=== PATIENT | female | born 1965 | race Caucasian/White ===

== ENCOUNTER → 2018-04-14 | Outpatient (CLI) | payer BC ==
--- NOTE | 2018-04-14 14:35 | MM ---
Reason for exam: clinical finding. Last mammogram was performed 3 years and 2 months ago. History: Patient is postmenopausal and history of other cancer. Family history of breast cancer in paternal grandmother. Took estrogen for 10 years beginning at age 31. Physical Findings: Nurse did not find any significant physical abnormalities on exam. MG 3D Diag Mammo W/Cad FERNANDO Bilateral CC and MLO view(s) were taken. Prior study comparison: January 31, 2015, bilateral MG screening mammo w CAD. December 09, 2011, bilateral digital screening mammo w/CAD. The breast tissue is heterogeneously dense. This may lower the sensitivity of mammography. Finding: There are typically benign round, diffuse/scattered and grouped calcifications in both breasts. There is no discrete abnormality. Benign bilateral axillary lymph nodes redemonstrated. These results were verbally communicated with the patient and result sheet given to the patient on 04/14/18. ASSESSMENT: Benign, BI-RAD 2 RECOMMENDATION: Routine screening mammogram of both breasts in 1 year.
--- NOTE | 2018-04-14 14:36 | USB ---
Reason for exam: clinical finding. History: Patient is postmenopausal and history of other cancer. Family history of breast cancer in paternal grandmother. Took estrogen for 10 years beginning at age 31. US Breast BILAT Right complete breast ultrasound includes all four quadrants, the retroareolar region and axilla. Finding demonstrates no cystic or solid lesion seen. Left complete breast ultrasound includes all four quadrants, the retroareolar region and axilla. Finding demonstrates no cystic or solid lesion seen. These results were verbally communicated with the patient and result sheet given to the patient on 04/14/18. ASSESSMENT: Negative, BI-RAD 1 RECOMMENDATION: Routine screening mammogram of both breasts in 1 year. Manage patient on a clinical basis.
== END | disposition home or self-care (01) ==
LOC: RADMAMWWP 12:46
PROVIDERS: ATTEND Family Medicine
DX: N63.0 Unspecified lump in unspecified breast (principal)
CPT/HCPCS: 77062; 77066

== ENCOUNTER 2018-09-01 11:05 | Emergency (ER) | payer BC ==
[2018-09-01] MEDS ORDERED: ONDANSETRON 4 MG/2 ML VIAL IVP STA (11:45)
--- NOTE | 2018-09-01 12:07 | ED ---
General Adult HPI - General Chief complaint: Nausea/Vomiting/Diarrhea Stated complaint: NVD, POSS CARDIAC ISSUE Time Seen by Provider: 09/01/18 11:30 Source: patient Mode of arrival: wheelchair Limitations: no limitations - History of Present Illness Initial comments: Patient is 57-year-old old female presented to the emergency department with nausea, vomiting and diarrhea. Patient states on Thursday she went to dinner for her birthday and had a steak. A few hours later she developed severe nausea and diarrhea. Patient states cause difficulty sleeping. Patient reports tried to eat some pasta last night but wasn't able to keep it down and vomited. Patient reports she can keep fluids down for most part. Patient reports abdominal discomfort. Patient denies any fever, headaches, blurred vision, lightheadedness, chest pain, chest tightness. Patient denies any hematuria or hematochezia. Patient denies dysuria or abdominal bloating. Patient didn't take anything for the nausea or diarrhea. - Related Data Home Medications Medication Instructions Recorded Confirmed ALPRAZolam [Xanax] 0.25 mg PO TID PRN 09/29/14 09/01/18 Albuterol Sulfate [Ventolin HFA] 2 puff INHALATION RT-Q4H PRN 09/29/14 09/01/18 Budesonide-Formot 160-4.5 Mcg 2 puff INHALATION RT-BID PRN 09/29/14 09/01/18 [Symbicort 160-4.5 Mcg Inhaler] Montelukast [Singulair] 10 mg PO HS PRN 09/29/14 09/01/18 Desvenlafaxine Succinate [Pristiq 100 mg PO HS 01/22/15 09/01/18 ER] Dulaglutide [Trulicity] 1.5 mg SQ MO 09/01/18 09/01/18 Esomeprazole Magnesium [NexIUM] 40 mg PO DAILY 09/01/18 09/01/18 Insulin Glargine,Hum.rec.anlog 70 unit SQ DAILY 09/01/18 09/01/18 [Basaglar Kwikpen U-100] Lisinopril [Prinivil] 10 mg PO DAILY 09/01/18 09/01/18 Previous Rx's Medication Instructions Recorded Ondansetron Odt [Zofran Odt] 4 mg PO Q8HR PRN #21 tab 09/01/18 Allergies Allergy/AdvReac Type Severity Reaction Status Date / Time No Known Allergies Allergy Verified 09/01/18 11:35 Review of Systems ROS Statement: Those systems with pertinent positive or pertinent negative responses have been documented in the HPI. ROS Other: All systems not noted in ROS Statement are negative. Past Medical History Past Medical History: Asthma, Diabetes Mellitus, GERD/Reflux, Sleep Apnea/CPAP/BIPAP Additional Past Medical History / Comment(s): uses cpap-has obstructive sleep apnea,?diverticulitis,rash below phil breast History of Any Multi-Drug Resistant Organisms: MRSA Date of last positivie culture/infection: 2004 MDRO Source:: right arm Past Surgical History: Appendectomy, Cholecystectomy, Hysterectomy, Orthopedic Surgery Additional Past Surgical History / Comment(s): right shoulder,hemorrhoid surg.,laparoscopy x 2 Past Anesthesia/Blood Transfusion Reactions: Motion Sickness Past Psychological History: Anxiety, Depression Smoking Status: Former smoker Past Alcohol Use History: None Reported Past Drug Use History: None Reported - Past Family History Mother Family Medical History: COPD, Diabetes Mellitus Additional Family Medical History / Comment(s): obesity Father Family Medical History: Diabetes Mellitus Additional Family Medical History / Comment(s): obesity,preluekemia General Exam Limitations: no limitations General appearance: alert, anxious, obese Head exam: Present: atraumatic, normocephalic, normal inspection Eye exam: Present: normal appearance, PERRL, EOMI. Absent: scleral icterus, conjunctival injection Pupils: Present: normal accommodation ENT exam: Present: normal exam, mucous membranes moist Neck exam: Present: normal inspection Respiratory exam: Present: normal lung sounds bilaterally. Absent: respiratory distress, wheezes, rales, rhonchi, stridor, chest wall tenderness, accessory muscle use Cardiovascular Exam: Present: regular rate, systolic murmur (Aortic stenosis noted) GI/Abdominal exam: Present: soft, hyperactive bowel sounds, other (Patient feels more nauseous with palpation on all 4 quadrants.). Absent: guarding, rebound, rigid Extremities exam: Present: normal inspection, full ROM Back exam: Present: normal inspection, full ROM. Absent: CVA tenderness (R), CVA tenderness (L) Neurological exam: Present: alert, oriented X3 Psychiatric exam: Present: anxious Skin exam: Present: warm Course Vital Signs 09/01/18 09/01/18 11:21 13:08 Temperature 98.9 F 98.0 F Pulse Rate 82 82 Respiratory 16 18 Rate Blood Pressure 122/72 157/80 O2 Sat by Pulse 99 97 Oximetry Medical Decision Making - Medical Decision Making Patient is 53-year-old female presenting to the emergency department with nausea vomiting diarrhea. CBC, CMP, UA and KUB were ordered. Labs positive for gl ucose but patient has not taken her diabetes medication today. KUB was unremarkable for an acute abdomen. Stool sample was also collected for culture. I think the patient has enteritis and having the fluids and the Zofran significantly improved her condition. Patient will be discharged with a pr escription of Zofran. Patient advised to drink fluids and stick to a liquid diet. Patient advised to follow primary care. Patient advised to return to emergency department if symptoms worsen. Case discussed with physician. - Lab Data Result diagrams: 09/01/18 12:05 09/01/18 12:05 Lab Results 09/01/18 09/01/18 09/01/18 Range/Units 12:05 12:05 12:05 WBC 10.1 (3.8-10.6) k/uL RBC 5.06 (3.80-5.40) m/uL Hgb 14.4 (11.4-16.0) gm/dL Hct 43.3 (34.0-46.0) % MCV 85.5 (80.0-100.0) fL MCH 28.5 (25.0-35.0) pg MCHC 33.3 (31.0-37.0) g/dL RDW 13.4 (11.5-15.5) % Plt Count 375 (150-450) k/uL Neutrophils % 77 % Lymphocytes % 18 % Monocytes % 4 % Eosinophils % 0 % Basophils % 0 % Neutrophils # 7.8 H (1.3-7.7) k/uL Lymphocytes # 1.8 (1.0-4.8) k/uL Monocytes # 0.4 (0-1.0) k/uL Eosinophils # 0.0 (0-0.7) k/uL Basophils # 0.0 (0-0.2) k/uL Sodium 141 (137-145) mmol/L Potassium 4.2 (3.5-5.1) mmol/L Chloride 106 (98-107) mmol/L Carbon Dioxide 26 (22-30) mmol/L Anion Gap 9 mmol/L BUN 11 (7-17) mg/dL Creatinine 0.57 (0.52-1.04) mg/dL Est GFR (CKD-EPI)AfAm >90 (>60 ml/min/1.73 sqM) Est GFR (CKD-EPI)NonAf >90 (>60 ml/min/1.73 sqM) Glucose 195 H (74-99) mg/dL Calcium 9.8 (8.4-10.2) mg/dL Total Bilirubin 0.4 (0.2-1.3) mg/dL AST 22 (14-36) U/L ALT 45 (9-52) U/L Alkaline Phosphatase 87 (38-126) U/L Total Protein 7.1 (6.3-8.2) g/dL Albumin 4.6 (3.5-5.0) g/dL Urine Color Yellow Urine Appearance Clear (Clear) Urine pH 7.0 (5.0-8.0) Ur Specific [place] 1.024 (1.001-1.035) Urine Protein Trace H (Negative) Urine Glucose (UA) Trace H (Negative) Urine Ketones 1+ H (Negative) Urine Blood Negative (Negative) Urine Nitrite Negative (Negative) Urine Bilirubin Negative (Negative) Urine Urobilinogen <2.0 (<2.0) mg/dL Ur Leukocyte Esterase Small H (Negative) Urine RBC 2 (0-5) /hpf Urine WBC 5 (0-5) /hpf Ur Squamous Epith Cells 5 H (0-4) /hpf Urine Bacteria Rare H (None) /hpf Urine Mucus Rare H (None) /hpf Disposition Clinical Impression: Gastroenteritis, Dehydration Disposition: HOME SELF-CARE Condition: Stable Instructions (If sedation given, give patient instructions): Acute Nausea and Vomiting (ED) Additional Instructions: Please take Zofran every 8 hours or as needed. Please drink a lot of fluids and a liquid diet. Please follow up primary care. Please return to emergency department if symptoms worsen. Prescriptions: Ondansetron Odt [Zofran Odt] 4 mg PO Q8HR PRN #21 tab PRN Reason: Nausea Is patient prescribed a controlled substance at d/c from ED?: No Referrals: Altagracia Craig MD [Primary Care Provider] - 1-2 days Time of Disposition: 14:24
[2018-09-01 12:29] LABS: Basophils % (A) 0 %; Eosinophils % (A) 0 %; HCT 43.3 % (34.0-46.0); HGB 14.4 gm/dL (11.4-16.0); Lymphocytes # (A) 1.8 k/uL (1.0-4.8); Lymphocytes % (A) 18 %; MCH 28.5 pg (25.0-35.0); MCHC 33.3 g/dL (31.0-37.0); MCV 85.5 fL (80.0-100.0); Mean Platelet Volume 6.6; Monocytes # (A) 0.4 k/uL (0-1.0); Monocytes % (A) 4 %; Neutrophils # (A) 7.8 k/uL (1.3-7.7); Neutrophils % (A) 77 %; Platelet Count 375 k/uL (150-450); RBC 5.06 m/uL (3.80-5.40); RDW 13.4 % (11.5-15.5); WBC 10.1 k/uL (3.8-10.6)
[2018-09-01 12:33] LABS: Appearance,Urine Clear (Clear); Bacteria,Urine Rare /hpf; Bilirubin,Urine Negative (Negative); Blood,Urine Negative (Negative); Color,Urine Yellow; Glucose,Urine (UA) Trace (Negative); Ketones,Urine 1+ (Negative); Leukocyte Esterase,Urine Small (Negative); Mucus,Urine Rare /hpf; Nitrite,Urine Negative (Negative); Protein,Urine Trace (Negative); RBC,Urine 2 /hpf (0-5); Specific Gravity,Urine 1.024 (1.001-1.035); Squamous Epithelial Cell,Urine 5 /hpf (0-4); Urobilinogen,Urine <2.0 mg/dL (<2.0); WBC,Urine 5 /hpf (0-5)
--- NOTE | 2018-09-01 12:38 | XR ---
EXAMINATION TYPE: XR KUB DATE OF EXAM: 09/01/2018 CLINICAL DATA: 53-year-old female with pain, H COMPARISON: 09/29/2014 FINDINGS: There is some patchy opacity adjacent to the left heart margin at the left base. Cholecystectomy clips. No evidence for free intraperitoneal air. Scattered small air-fluid levels within the right side of the colon and also within the rectum. No dilated small bowel loops. Phleboliths within the pelvis. IMPRESSION: 1. Some patchy opacity at the left base could represent atelectasis or early infiltrate. Correlate fo r any respiratory signs/symptoms. 2. Scattered colonic air-fluid levels in the right side of the abdomen and in the pelvis. Findings craven ggesting liquid stool that could relate to an enteritis or ileus. 3. No evidence of bowel obstruction or free intraperitoneal air.
[2018-09-01 12:51] LABS: ALT 45 U/L (9-52); AST 22 U/L (14-36); Albumin 4.6 g/dL (3.5-5.0); Alkaline Phosphatase 87 U/L (38-126); Anion Gap 9 mmol/L; Blood Urea Nitrogen 11 mg/dL (7-17); Calcium 9.8 mg/dL (8.4-10.2); Carbon Dioxide 26 mmol/L (22-30); Chloride 106 mmol/L (98-107); Glucose 195 mg/dL (74-99); Potassium 4.2 mmol/L (3.5-5.1); Sodium 141 mmol/L (137-145); Total Bilirubin 0.4 mg/dL (0.2-1.3); Total Protein 7.1 g/dL (6.3-8.2)
[2018-09-01 13:09] VITALS: RESP 18
[2018-09-01] MEDS ORDERED: SODIUM CHLORIDE 0.9% 1,000 ML IV STA (13:39)
[2018-09-01 14:46] VITALS: BP 117/72; PULSE 68; TEMP 98.1
== END 2018-09-01 14:44 | disposition home or self-care (01) ==
LOC: EC 11:05
DX: K52.9 Noninfective gastroenteritis and colitis, unspecified (principal); E86.0 Dehydration; J45.909 Unspecified asthma, uncomplicated; E11.9 Type 2 diabetes mellitus without complications; K21.9 Gastro-esophageal reflux disease without esophagitis; F41.9 Anxiety disorder, unspecified; F32.9 Major depressive disorder, single episode, unspecified; G47.33 Obstructive sleep apnea (adult) (pediatric); Z99.89 Dependence on other enabling machines and devices; Z86.14 Personal history of Methicillin resistant Staphylococcus aureus infection; Z90.49 Acquired absence of other specified parts of digestive tract; Z90.710 Acquired absence of both cervix and uterus; Z87.891 Personal history of nicotine dependence; Z79.4 Long term (current) use of insulin; Z79.899 Other long term (current) drug therapy
CPT/HCPCS: 36415; 80053; 85025; 81001; 87045; 87046; 74018; 99284; 96374; 96361; J2405

== ENCOUNTER → 2018-09-03 | Outpatient (CLI) | payer BC ==
--- NOTE | 2018-09-03 12:46 | US ---
EXAMINATION TYPE: US carotid duplex BILAT DATE OF EXAM: 09/03/2018 COMPARISON: NONE CLINICAL HISTORY: R09.89 Bruit. EXAM MEASUREMENTS: RIGHT: Peak Systolic Velocity (PSV) cm/sec ----- Right CCA: 88.6 ----- Right ICA: 143.1 ----- Right ECA: 110.8 ICA/CCA ratio: 1.6 RIGHT: End Diastole cm/sec ----- Right CCA: 25.0 ----- Right ICA: 51.0 ----- Right ECA: 15.5 LEFT: Peak Systolic Velocity (PSV) cm/sec ----- Left CCA: 103.9 ----- Left ICA: 100.0 ----- Left ECA: 97.3 ICA/CCA ratio: 1.0 LEFT: End Diastole cm/sec ----- Left CCA: 31.2 ----- Left ICA: 35.2 ----- Left ECA: 18.0 VERTEBRALS (direction of flow): Right Vertebral: Antegrade Left Vertebral: Antegrade Rhythm: Normal Mildly elevated right ICA. IMPRESSION: No evidence for hemodynamically significant stenosis. Criteria for Assigning % of Stenosis / Diameter reduction (Estimation based on the indirect measurements of the internal carotid artery velocities (ICA PSV). 1. Normal (no stenosis)=ICA PSV < 125 cm/s: ratio < 2.0: ICA EDV<40 cm/s. 2. Less than 50% stenosis=ICA PSV < 125 cm/s: ratio < 2.0: ICA EDV<40 cm/s. 3. 50 to 69% stenosis=ICA PSV of 125 to 230 cm/s: ration 2.0 ? 4.0: ICA EDV 40-100 cm/s. 4. Greater than 70% stenosis to near occlusion= ICA PSV > 230 cm/s: ratio > 4.0: ICA EDV > 100 cm/s. 5. Near occlusion= ICA PSV velocities may be low or undetectable: variable ratio and ICA EDV. 6. Total occlusion=unable to detect flow.
--- NOTE | 2018-09-03 12:59 | ECHOF ---
Referral Reason:R01.1 heart murmur MEASUREMENTS -------- HEIGHT: 160.0 cm WEIGHT: 96.6 kg BP: RVIDd: 2.4 cm (< 3.3) IVSd: 1.3 cm (0.6 - 1.1) LVIDd: 3.9 cm (3.9 - 5.3) LVPWd: 1.3 cm (0.6 - 1.1) IVSs: 1.8 cm LVIDs: 2.3 cm LVPWs: 2.0 cm LAESV Index (A-L): 16.66 ml/m Ao Diam: 2.5 cm (2.0 - 3.7) AV Cusp: 1.4 cm (1.5 - 2.6) LA Diam: 2.6 cm (2.7 - 3.8) MV EXCURSION: 15.618 mm (> 18.000) MV EF SLOPE: 68 mm/s (70 - 150) EPSS: 0.5 cm MV E Te: 1.19 m/s MV DecT: 234 ms MV A Te: 0.81 m/s MV E/A Ratio: 1.47 AV maxP.70 mmHg AV meanP.94 mmHg RAP: 15.00 mmHg RVSP: 20.02 mmHg FINDINGS -------- Sinus rhythm. This was a technically good study. The left ventricular size is normal. There is moderate concentric left ventricular hypertrophy. O verall left ventricular systolic function is normal with, an EF between 55 - 60 %. The right ventricle is normal in size. Normal LA size by volume 22+/-6 ml/m2. The right atrial size is normal. Interatrial and interventricular septum intact. The aortic valve was not well visualized. There is mild aortic stenosis present. Peak/mean gradie nt across the Aortic Valve is 16.70mmHg / 9.94mmHg. The mitral valve leaflets are mildly thickened. Moderate mitral regurgitation is present. Mild tricuspid regurgitation present. There is no evidence of pulmonary hypertension. The right v entricular systolic pressure, as measured by Doppler, is 20.02mmHg. Pulmonic valve appears structurally normal. The aortic root size is normal. The inferior vena cava is mildly dilated. There is no pericardial effusion. CONCLUSIONS -------- 1. Sinus rhythm. 2. This was a technically good study. 3. The left ventricular size is normal. 4. There is moderate concentric left ventricular hypertrophy. 5. Overall left ventricular systolic function is normal with, an EF between 55 - 60 %. 6. The right ventricle is normal in size. 7. Normal LA size by volume 22+/-6 ml/m2. 8. The right atrial size is normal. 9. Interatrial and interventricular septum intact. 10. The aortic valve was not well visualized. 11. There is mild aortic stenosis present. 12. Peak/mean gradient across the Aortic Valve is 16.70mmHg / 9.94mmHg. 13. The mitral valve leaflets are mildly thickened. 14. Moderate mitral regurgitation is present. 15. Mild tricuspid regurgitation present. 16. There is no evidence of pulmonary hypertension. 17. The right ventricular systolic pressure, as measured by Doppler, is 20.02mmHg. 18. Pulmonic valve appears structurally normal. 19. The aortic root size is normal. 20. The inferior vena cava is mildly dilated. 21. There is no pericardial effusion. HIDE SHAKER: Lynn Blackman RDCS
== END | disposition home or self-care (01) ==
LOC: RADECHMAIN 11:06
PROVIDERS: ATTEND Family Medicine
DX: I08.1 Rheumatic disorders of both mitral and tricuspid valves (principal); I86.8 Varicose veins of other specified sites; R09.89 Other specified symptoms and signs involving the circulatory and respiratory systems
CPT/HCPCS: 93306; 93880

== ENCOUNTER 2018-09-09 14:34 | Observation (INO) | payer BC ==
[2018-09-09 15:25] LABS: Basophils % (A) 0 %; Eosinophils % (A) 0 %; HCT 46.2 % (34.0-46.0); Lymphocytes # (A) 3.6 k/uL (1.0-4.8); Lymphocytes % (A) 36 %; MCHC 32.5 g/dL (31.0-37.0); MCV 83.1 fL (80.0-100.0); Mean Platelet Volume 6.4; Monocytes # (A) 0.6 k/uL (0-1.0); Monocytes % (A) 6 %; Neutrophils # (A) 5.7 k/uL (1.3-7.7); Neutrophils % (A) 57 %; Platelet Count 372 k/uL (150-450); RBC 5.55 m/uL (3.80-5.40); RDW 13.3 % (11.5-15.5); WBC 10.1 k/uL (3.8-10.6)
--- NOTE | 2018-09-09 15:32 | XR ---
EXAMINATION TYPE: XR chest 2V DATE OF EXAM: 09/09/2018 COMPARISON: 05/27/2015 TECHNIQUE: PA and lateral views submitted. HISTORY: Difficulty breathing FINDINGS: The lungs are clear and there is no pneumothorax, pleural effusion, or focal pneumonia. The heart i s enlarged. Hypertrophic change of the vertebral column. Hyperinflation correlate for COPD. IMPRESSION: 1. No acute process.
[2018-09-09 15:39] LABS: ALT 42 U/L (9-52); AST 33 U/L (14-36); Albumin 4.8 g/dL (3.5-5.0); Alkaline Phosphatase 88 U/L (38-126); Anion Gap 10 mmol/L; Blood Urea Nitrogen 12 mg/dL (7-17); Calcium 10.2 mg/dL (8.4-10.2); Carbon Dioxide 26 mmol/L (22-30); Chloride 104 mmol/L (98-107); Glucose 91 mg/dL (74-99); Magnesium 1.8 mg/dL (1.6-2.3); Sodium 140 mmol/L (137-145); Total Bilirubin 0.5 mg/dL (0.2-1.3); Total Protein 7.6 g/dL (6.3-8.2)
[2018-09-09 15:53] LABS: D-Dimer 0.27 mg/L FEU (<0.60); Partial Thromboplastin Time 24.4 sec (22.0-30.0); Prothrombin Time 10.5 sec (9.0-12.0)
[2018-09-09] MEDS ORDERED: ASPIRIN 325 MG TAB PO STA (16:12)
[2018-09-09] MEDS ORDERED: ONDANSETRON 4 MG/2 ML VIAL IVP PRN (16:15)
[2018-09-09] MEDS ORDERED: ACETAMINOPHEN TAB 325 MG TAB PO PRN (16:15)
[2018-09-09] MEDS ORDERED: NALOXONE 0.4 MG/ML 1 ML VIAL IV PRN (16:15)
[2018-09-09] MEDS ORDERED: MORPHINE SULFATE 4 MG/ML SYRINGE IV PRN (16:15)
--- NOTE | 2018-09-09 16:21 | ED ---
Pediatric SOB HPI - General Chief Complaint: Shortness of Breath Stated Complaint: SOB/chest pressure Time Seen by Provider: 09/09/18 14:45 Source: patient, RN notes reviewed, old records reviewed Mode of arrival: ambulatory Limitations: no limitations - History of Present Illness Initial Comments: 53-year-old female history of asthma presenting for evaluation of dyspnea and chest tightness. Patient has had symptoms dyspnea with exertion for the past 3 weeks. She developed some anterior chest tightness. She states this is different from previous asthma exacerbations. She was seen by her primary care physician today and sent to the hospital for further evaluation and concern for anginal chest pain. Patient has no known history of coronary artery disease. She is a nonsmoker. History of diabetes or hypertension. - Related Data Home Medications Medication Instructions Recorded Confirmed ALPRAZolam [Xanax] 0.25 mg PO TID PRN 09/29/14 09/09/18 Albuterol Sulfate [Ventolin HFA] 2 puff INHALATION RT-Q4H PRN 09/29/14 09/09/18 Budesonide-Formot 160-4.5 Mcg 2 puff INHALATION RT-BID PRN 09/29/14 09/09/18 [Symbicort 160-4.5 Mcg Inhaler] Montelukast [Singulair] 10 mg PO HS PRN 09/29/14 09/09/18 Desvenlafaxine Succinate [Pristiq 100 mg PO HS 01/22/15 09/09/18 ER] Dulaglutide [Trulicity] 1.5 mg SQ MO 09/01/18 09/09/18 Esomeprazole Magnesium [NexIUM] 40 mg PO DAILY 09/01/18 09/09/18 Lisinopril [Prinivil] 10 mg PO DAILY 09/01/18 09/09/18 Cholecalciferol (Vitamin D3) 2,000 unit PO DAILY 09/09/18 09/09/18 [Vitamin D3] Cyanocobalamin (Vitamin B-12) 5,000 mcg PO Q7D 09/09/18 09/09/18 [Vitamin B-12] Insulin Glargine,Hum.rec.anlog 75 unit SQ DAILY 09/09/18 09/09/18 [Basaglar Kwikpen U-100] Previous Rx's Medication Instructions Recorded Ondansetron Odt [Zofran Odt] 4 mg PO Q8HR PRN #21 tab 09/01/18 Allergies Allergy/AdvReac Type Severity Reaction Status Date / Time No Known Allergies Allergy Verified 09/09/18 15:23 Review of Systems ROS Statement: Those systems with pertinent positive or pertinent negative responses have been documented in the HPI. ROS Other: All systems not noted in ROS Statement are negative. Past Medical History Past Medical History: Asthma, Diabetes Mellitus, GERD/Reflux, Sleep Apnea/CPAP/BIPAP Additional Past Medical History / Comment(s): uses cpap-has obstructive sleep apnea,?diverticulitis,rash below phil breast History of Any Multi-Drug Resistant Organisms: MRSA Date of last positivie culture/infection: 2004 MDRO Source:: right arm Past Surgical History: Appendectomy, Cholecystectomy, Hysterectomy, Orthopedic Surgery Additional Past Surgical History / Comment(s): right shoulder,hemorrhoid surg., laparoscopy x 2 Past Anesthesia/Blood Transfusion Reactions: Motion Sickness Past Psychological History: Anxiety, Depression Smoking Status: Former smoker Past Alcohol Use History: None Reported Past Drug Use History: None Reported - Past Family History Mother Family Medical History: COPD, Diabetes Mellitus Additional Family Medical History / Comment(s): obesity Father Family Medical History: Diabetes Mellitus Additional Family Medical History / Comment(s): obesity,preluekemia General Exam Limitations: no limitations General appearance: alert, in no apparent distress Head exam: Present: atraumatic, normocephalic Eye exam: Present: normal appearance, PERRL ENT exam: Present: normal exam Neck exam: Present: normal inspection. Absent: tenderness, meningismus Respiratory exam: Present: normal lung sounds bilaterally. Absent: respiratory distress, wheezes Cardiovascular Exam: Present: regular rate, normal rhythm GI/Abdominal exam: Present: soft. Absent: distended, tenderness, guarding Extremities exam: Present: normal inspection, normal capillary refill. Absent: pedal edema, calf tenderness Neurological exam: Present: alert, oriented X3, CN II-XII intact. Absent: motor sensory deficit Psychiatric exam: Present: normal affect, normal mood Skin exam: Present: warm, dry, intact. Absent: cyanosis, diaphoretic Course Vital Signs 09/09/18 09/09/18 14:38 14:40 Temperature 98.6 F Pulse Rate 88 Pulse Rate [ 88 Cloth Bleaching Range Tender ] Respiratory 18 20 Rate Blood Pressure 137/83 O2 Sat by Pulse 99 Oximetry - Reevaluation(s) Reevaluation #1: 09/09/18 16:17 EKG: Normal sinus rhythm rate of 77, IN interval 168, QRS duration 88, QTC 407, no ST segment elevation. Medical Decision Making - Medical Decision Making 53-year-old female presented for evaluation of dyspnea and chest tightness. EKG is normal sinus rhythm, no definitive signs of acute ischemia, no ST segment elevation. Patient was sent to the hospital with plan for admission with cardiology on consult. Chest x-ray was obtained, shows no acute cardiothoracic pathology. Normal CBC, normal CMP, negative d-dimer, negative troponin, ne gative BNP. - Lab Data Result diagrams: 09/09/18 15:03 09/09/18 15:03 Lab Results 09/09/18 09/09/18 09/09/18 Range/Units 15:03 15:03 15:03 WBC 10.1 (3.8-10.6) k/uL RBC 5.55 H (3.80-5.40) m/uL Hgb 15.0 (11.4-16.0) gm/dL Hct 46.2 H (34.0-46.0) % MCV 83.1 (80.0-100.0) fL MCH 27.0 (25.0-35.0) pg MCHC 32.5 (31.0-37.0) g/dL RDW 13.3 (11.5-15.5) % Plt Count 372 (150-450) k/uL Neutrophils % 57 % Lymphocytes % 36 % Monocytes % 6 % Eosinophils % 0 % Basophils % 0 % Neutrophils # 5.7 (1.3-7.7) k/uL Lymphocytes # 3.6 (1.0-4.8) k/uL Monocytes # 0.6 (0-1.0) k/uL Eosinophils # 0.0 (0-0.7) k/uL Basophils # 0.0 (0-0.2) k/uL PT (9.0-12.0) sec INR (<1.2) APTT (22.0-30.0) sec D-Dimer (<0.60) mg/L FEU Sodium 140 (137-145) mmol/L Potassium 4.0 (3.5-5.1) mmol/L Chloride 104 (98-107) mmol/L Carbon Dioxide 26 (22-30) mmol/L Anion Gap 10 mmol/L BUN 12 (7-17) mg/dL Creatinine 0.63 (0.52-1.04) mg/dL Est GFR (CKD-EPI)AfAm >90 (>60 ml/min/1.73 sqM) Est GFR (CKD-EPI)NonAf >90 (>60 ml/min/1.73 sqM) Glucose 91 (74-99) mg/dL Calcium 10.2 (8.4-10.2) mg/dL Magnesium 1.8 (1.6-2.3) mg/dL Total Bilirubin 0.5 (0.2-1.3) mg/dL AST 33 (14-36) U/L ALT 42 (9-52) U/L Alkaline Phosphatase 88 (38-126) U/L Troponin I (0.000-0.034) ng/mL NT-Pro-B Natriuret Pep 28 pg/mL Total Protein 7.6 (6.3-8.2) g/dL Albumin 4.8 (3.5-5.0) g/dL 09/09/18 09/09/18 Range/Units 15:03 15:03 WBC (3.8-10.6) k/uL RBC (3.80-5.40) m/uL Hgb (11.4-16.0) gm/dL Hct (34.0-46.0) % MCV (80.0-100.0) fL MCH (25.0-35.0) pg MCHC (31.0-37.0) g/dL RDW (11.5-15.5) % Plt Count (150-450) k/uL Neutrophils % % Lymphocytes % % Monocytes % % Eosinophils % % Basophils % % Neutrophils # (1.3-7.7) k/uL Lymphocytes # (1.0-4.8) k/uL Monocytes # (0-1.0) k/uL Eosinophils # (0-0.7) k/uL Basophils # (0-0.2) k/uL PT 10.5 (9.0-12.0) sec INR 1.0 (<1.2) APTT 24.4 (22.0-30.0) sec D-Dimer 0.27 (<0.60) mg/L FEU Sodium (137-145) mmol/L Potassium (3.5-5.1) mmol/L Chloride (98-107) mmol/L Carbon Dioxide (22-30) mmol/L Anion Gap mmol/L BUN (7-17) mg/dL Creatinine (0.52-1.04) mg/dL Est GFR (CKD-EPI)AfAm (>60 ml/min/1.73 sqM) Est GFR (CKD-EPI)NonAf (>60 ml/min/1.73 sqM) Glucose (74-99) mg/dL Calcium (8.4-10.2) mg/dL Magnesium (1.6-2.3) mg/dL Total Bilirubin (0.2-1.3) mg/dL AST (14-36) U/L ALT (9-52) U/L Alkaline Phosphatase (38-126) U/L Troponin I <0.012 (0.000-0.034) ng/mL NT-Pro-B Natriuret Pep pg/mL Total Protein (6.3-8.2) g/dL Albumin (3.5-5.0) g/dL Disposition Clinical Impression: Chest pain, Dyspnea Disposition: ADMITTED IP TO THIS [facility] Condition: Stable Is patient prescribed a controlled substance at d/c from ED?: No Referrals: Altagracia Craig MD [Primary Care Provider] - 1-2 days Time of Disposition: 16:21 Decision to Admit Reason: Admit from EC Decision Date: 09/09/18 Decision Time: 16:21
[2018-09-09] MEDS ORDERED: ALPRAZolam 0.25 MG TAB PO PRN (16:53)
[2018-09-09] MEDS ORDERED: ONDANSETRON ODT 4 MG TAB PO PRN (16:53)
[2018-09-09] MEDS ORDERED: MONTELUKAST 10 MG TAB PO PRN (16:53)
--- NOTE | 2018-09-09 16:53 | P.HPIM ---
History of Present Illness H&P Date: 09/09/18 53 years old female with past medical history of asthma, diabetes sleep apnea patient of Dr. Craig who presented with shortness of breath and chest pain to the primary care's office. Shortness of breath is at rest and is worse with exertion. According to the patient, she has been having on-and-off chest pain substernal and left chest nonradiating and associated with sweating and dizziness for the past 1 month which has worsened in the past week. Patient has echocardiogram done on September 03 that suggested moderate concentric hypertrophy with moderate mitral regurgitation. Patient was sent by the primary care to the hospital to get evaluated for the chest pain. EKG done in the ER SST-T wave changes with normal rate, QRS 88 QTC 47. Lab evaluated in the ER suggest a WBC of 10.1 hemoglobin 15 hematocrit 46.2 with a B UN 12 creatinine 0.60 cardiology consult placed patient is admitted for evaluation of chest pain. Review of Systems Constitutional: Denies chills, Denies fever, endorses lethargy,, Denies poor appetite, , Denies weight loss Eyes: denies decreased vision, denies diplopia, denies discharge, denies pain Ears: deny: decreased hearing Ears, nose, mouth and throat: Denies dental pain, Denies headache, Denies nasal discharge, Denies nose pain Cardiovascular: Endorses intermittent chest pain, Denies decreased exercise tolerance, Denies edema, Denies high blood pressure, endorses irregular heart beat, endorses palpitations, Denies paroxysmal nocturnal dyspnea, Denies rapid heart beat, endorses shortness of breath Respiratory: Denies congestion, Denies cough, Denies cough with sputum, Denies dyspnea, Denies home oxygen, Denies wheezing Gastrointestinal: Denies abdominal pain, Denies change in bowel habits, Denies coffee ground emesis, Denies early satiety, Denies excessive gas, Denies heartburn, Denies hematemesis, Denies hematochezia, Denies loss of appetite, Denies nausea, Denies vomiting Genitourinary: Denies dysuria, Denies flank pain, Denies kidney stones, Denies menorrhagia, Denies urgency, Denies urinary frequency Musculoskeletal: Denies gait dysfunction, Denies limitation of motion, Denies morning stiffness, Denies muscle cramps Integumentary: Denies rash, Denies wounds, Denies brittle nails, Denies change in hair/nails, Denies darkening of skin Neurological: Denies balance difficulties, Denies change in speech, Denies double vision, Denies gait dysfunction, Denies loss of vision, Denies motor disturbance, Denies numbness, Denies paralysis, Denies paresthesias, Denies seizures Psychiatric: Denies anxiety, Denies depression Endocrine: Denies excessive sweating, Denies excessive thirst, Denies high blood sugars, Denies palpitations Hematologic/Lymphatic: Denies easy bruising, Denies lymphadenopathy Past Medical History Past Medical History: Asthma, Diabetes Mellitus, GERD/Reflux, Sleep Apnea/CPAP/BIPAP Additional Past Medical History / Comment(s): uses cpap-has obstructive sleep apnea,?diverticulitis,rash below phil breast History of Any Multi-Drug Resistant Organisms: MRSA Date of last positivie culture/infection: 2004 MDRO Source:: right arm Past Surgical History: Appendectomy, Cholecystectomy, Hysterectomy, Orthopedic Surgery Additional Past Surgical History / Comment(s): right shoulder,hemorrhoid surg.,laparoscopy x 2 Past Anesthesia/Blood Transfusion Reactions: Motion Sickness Past Psychological History: Anxiety, Depression Smoking Status: Former smoker Past Alcohol Use History: None Reported Past Drug Use History: None Reported - Past Family History Mother Family Medical History: COPD, Diabetes Mellitus Additional Family Medical History / Comment(s): obesity Father Family Medical History: Diabetes Mellitus Additional Family Medical History / Comment(s): obesity,preluekemia Medications and Allergies Home Medications Medication Instructions Recorded Confirmed Type ALPRAZolam [Xanax] 0.25 mg PO TID PRN 09/29/14 09/09/18 History Albuterol Sulfate [Ventolin HFA] 2 puff INHALATION RT-Q4H PRN 09/29/14 09/09/18 History Budesonide-Formot 160-4.5 Mcg 2 puff INHALATION RT-BID PRN 09/29/14 09/09/18 History [Symbicort 160-4.5 Mcg Inhaler] Montelukast [Singulair] 10 mg PO HS PRN 09/29/14 09/09/18 History Desvenlafaxine Succinate [Pristiq 100 mg PO HS 01/22/15 09/09/18 History ER] Dulaglutide [Trulicity] 1.5 mg SQ MO 09/01/18 09/09/18 History Esomeprazole Magnesium [NexIUM] 40 mg PO DAILY 09/01/18 09/09/18 History Lisinopril [Prinivil] 10 mg PO DAILY 09/01/18 09/09/18 History Ondansetron Odt [Zofran Odt] 4 mg PO Q8HR PRN #21 tab 09/01/18 09/09/18 Rx Cholecalciferol (Vitamin D3) 2,000 unit PO DAILY 09/09/18 09/09/18 History [Vitamin D3] Cyanocobalamin (Vitamin B-12) 5,000 mcg PO Q7D 09/09/18 09/09/18 History [Vitamin B-12] Insulin Glargine,Hum.rec.anlog 75 unit SQ DAILY 09/09/18 09/09/18 History [Basaglar Kwikpen U-100] Allergies Allergy/AdvReac Type Severity Reaction Status Date / Time No Known Allergies Allergy Verified 09/09/18 15:23 Physical Exam Vitals: Vital Signs Temp Pulse Pulse Resp BP Pulse Ox 09/09/18 14:40 88 20 09/09/18 14:38 98.6 F 88 18 137/83 99 Intake and Output 09/09/18 09/09/18 09/09/18 06:59 14:59 22:59 Other: Weight 95.254 kg - Constitutional General appearance: cooperative, no acute distress, obese - EENT Eyes: anicteric sclerae, PERRLA, normal appearance ENT: hearing grossly normal - Neck Neck: no lymphadenopathy, normal ROM, no other, no rigidity, no stridor, no thyromegaly - Respiratory Respiratory: bilateral: CTA, negative: diminished, dullness, rales, rhonchi - Cardiovascular Rhythm: regular Heart sounds: normal: S1, S2 Abnormal Heart Sounds: no systolic murmur, no diastolic murmur, no rub, no S3 Gallop, no S4 Gallop, no click, no other - Gastrointestinal General gastrointestinal: normal bowel sounds, soft - Integumentary Integumentary: no rash - Neurologic Neurologic: CNII-XII intact - Musculoskeletal Musculoskeletal: gait normal, strength equal bilaterally - Psychiatric Psychiatric: A&O x's 3, appropriate affect Results CBC & Chem 7: 09/09/18 15:03 09/09/18 15:03 Labs: Abnormal Lab Results - Last 24 Hours (Table) 09/09/18 Range/Units 15:03 RBC 5.55 H (3.80-5.40) m/uL Hct 46.2 H (34.0-46.0) % Thrombosis Risk Factor Assmnt - DVT/VTE Prophylaxis DVT/VTE Prophylaxis: Pharmacologic Prophylaxis ordered Assessment and Plan Plan: #1 acute chest pain appears atypical in nature. EKG negative for ST or T-wave changes troponin 1 negative repeat troponin. Cardiology evaluation continue. Echo suggested moderate MR, mild aortic stenosis moderate concentric hypertrophy with EF 60-65%. Continue telemetryI #2 type 2 diabetes [facility] Decrease Lantus to 50 units daily. #3 hypertension continue lisinopril 10 mg by mouth daily #4 depression/anxiety continue this venlafaxine 100 mg daily at bedtime. Xanax 0.2 5NG by mouth 3 times a day as needed #5 COPD/asthma continue patient on Symbicort and albuterol as needed. Continue Singulair 10 mg by mouth at bedtime #6 GERD continue Nexium 40 mg by mouth daily #7 CODE STATUS full code #8 DVT prophylaxis with heparin every 12 Disposition likely discharge tomorrow
[2018-09-09 18:19] VITALS: RESP 18
[2018-09-09 20:06] VITALS: BMI 37.2
[2018-09-09 20:53] LABS: Glucose,Whole Blood 98 mg/dL (75-99)
[2018-09-09] MEDS: SYMBICORT 160-4.5 MCG INHALER INHALATION PRN (20:57)
[2018-09-09] MEDS ORDERED: DESVENLAFAXINE SUCCINATE 50 MG TAB.ER.24H PO SCH (21:00)
[2018-09-10 03:06] LABS: Basophils # (A) 0.1 k/uL (0-0.2); Basophils % (A) 1 %; Eosinophils # (A) 0.1 k/uL (0-0.7); Eosinophils % (A) 1 %; HCT 45.5 % (34.0-46.0); HGB 14.4 gm/dL (11.4-16.0); Lymphocytes # (A) 4.5 k/uL (1.0-4.8); Lymphocytes % (A) 42 %; MCH 26.8 pg (25.0-35.0); MCHC 31.6 g/dL (31.0-37.0); MCV 84.7 fL (80.0-100.0); Mean Platelet Volume 6.4; Monocytes # (A) 0.6 k/uL (0-1.0); Monocytes % (A) 5 %; Neutrophils # (A) 5.5 k/uL (1.3-7.7); Neutrophils % (A) 50 %; Platelet Count 325 k/uL (150-450); RBC 5.37 m/uL (3.80-5.40); RDW 13.4 % (11.5-15.5); WBC 10.9 k/uL (3.8-10.6)
[2018-09-10 03:19] LABS: ALT 33 U/L (9-52); AST 23 U/L (14-36); Albumin 4.3 g/dL (3.5-5.0); Alkaline Phosphatase 72 U/L (38-126); Anion Gap 11 mmol/L; Blood Urea Nitrogen 13 mg/dL (7-17); Calcium 9.9 mg/dL (8.4-10.2); Carbon Dioxide 23 mmol/L (22-30); Chloride 105 mmol/L (98-107); Glucose 114 mg/dL (74-99); Potassium 3.8 mmol/L (3.5-5.1); Sodium 139 mmol/L (137-145); Total Bilirubin 0.4 mg/dL (0.2-1.3); Total Protein 6.6 g/dL (6.3-8.2)
[2018-09-10 06:38] LABS: Glucose,Whole Blood 85 mg/dL (75-99)
[2018-09-10] MEDS ORDERED: PANTOPRAZOLE 40 MG TABLET PO SCH (07:30)
[2018-09-10] MEDS: SYMBICORT 160-4.5 MCG INHALER INHALATION PRN (07:35)
[2018-09-10] MEDS ORDERED: LISINOPRIL 10 MG TAB PO SCH (09:00)
[2018-09-10] MEDS ORDERED: ASPIRIN 325 MG TAB PO SCH (09:00)
[2018-09-10] MEDS ORDERED: CHOLECALCIFEROL 1,000 UNIT TAB PO SCH (09:00)
[2018-09-10] MEDS ORDERED: INSULIN DETEMIR (LEVEMIR) 100 UNIT/ML SYR SQ SCH (09:00)
--- NOTE | 2018-09-10 11:16 | P.CRDCN ---
History of Present Illness History of present illness: This is a pleasant 53-year-old female past medical history significant for diabetes mellitus, asthma, gastroesophageal reflux disease, hypertension, sleep apnea and obestiy. She denies history of coronary artery disease and dose not follow with a [facility] for any reason. We have been asked to see her in consultation for chest pain. She states she saw her PCP and was sent in for a stress test. She states for the previous 2-3 weeks she has noticed shortness of breath which is atypical for her. She has underlying asthma, however this shortness of breath felt different and was not associated with wheezing. She felt like every time she briefly exerted herself her shortness of breath was worse. Then yesterday she started having tightness in the chest associated with the shortness of breath. She had an echocardiogram done as an outpatient that revealed preserved LV systolic function with EF 55% with mild-moderate MR and mild aortic stenosis with mean gradient across the valve of 9 mmHg. She is currently chest pain free and denies resting shortness of breath. EKG reveals sinus mechanism with no acute ST or T-wave abnormalities. Chest xray is negative for an acute cardiopulmonary process. Laboratory data reviewed, WBC 10.9, hgb 14.4, plt 325, d-dimer negative, sodium 139, potassium 3.8, creatinine 0.67, cardiac enzymes negative x3, magnesium 1.8, NTproBNP 28. Current cardiac medications include lisinopril 10 mg daily. She states she was told she could stop her statin since her A1C was controlled. At the time of my exam: CONSTITUTIONAL: Denies fever. Denies chills. EYES: Denies blurred vision. Denies vision changes. Denies eye pain. EARS, NOSE, MOUTH & THROAT: Denies headache. Denies sore throat. Denies ear pain. CARDIOVASCULAR: Denies chest pain. Denies shortness of breath. Denies orthopnea. Denies PND. Denies palpitations. RESPIRATORY: Denies cough. GASTROINTESTINAL: Denies abdominal pain. Denies diarrhea. Denies constipation. Denies nausea. Denies vomiting. MUSCULOSKELETAL: Denies myalgias. INTEGUMENTARY: Denies pruitis. Denies rash. NEUROLOGIC: Denies numbness. Denies tingling. Denies weakness. PSYCHIATRIC: Denies anxiety. Denies depression. ENDOCRINE: Denies fatigue. Denies weight change. Denies polydipsia. Denies polyurina. GENITOURINARY: Denies burning, hematuria or urgency with micturation. HEMATOLOGIC: Denies history of anemia. Denies bleeding. Blood pressure 108/70 heart rate 82 afebrile maintaining oxygen saturation on ro om air GENERAL: This is a 53-year-old female in no apparent distress at the time of my examination. Obese. HEENT: Head is atraumatic, normocephalic. Pupils are equal, round. Sclerae anicteric. Conjunctivae are clear. Mucous membranes of the mouth are moist. Neck is supple. There is no jugular venous distention. No carotid bruit is heard. LUNGS: Clear to auscultation no wheezes, rales or rhonchi. No chest wall tenderness is noted on palpation or with deep breathing. HEART: Regular rate and rhythm with systolic ejection murmur at the left sternal border, no rubs or gallops. S1 and S2 heard. ABDOMEN: Soft, nontender. Bowel sounds are heard. No organomegaly noted. EXTREMITIES: No evidence of peripheral edema and no calf tenderness noted. VASCULAR: Radial and dorsalis pedis pulses palpated, no evidence of clubbing. NEUROLOGIC: Patient is awake, alert and oriented x3. ASSESSMENT Chest pain and shortness of breath, atypical for angina. An acute coronary event has been ruled out. Valvular heart disease, non-rheumatic. Aortic stenosis and mitral regurgitation Hypertension Diabetes mellitus History of asthma Obstructive sleep apnea Obesity, BMI 37 PLAN An acute coronary event has been ruled out. Decrease aspirin to 81 mg daily. Shortness of breath is unlikely related to aortic stenosis as it is mild. Check lipid profile. Lengthy discussion with the patient and her daughter regarding the need for ongoing and continuous use of a statin medication secondary to diabetes whether controlled or not. Initiate on crestor 20 mg daily. Perform stress echocardiogram to assess for stress induced ischemia. If stress test is normal she is stable for discharge home. Further evaluation of valvular disease will be completed as an outpatient with [facility]. Follow up in the office with Dr. Mccann in 2-3 weeks. Thank you kindly for this consultation. Nurse Practitioner note has been reviewed, I agree with a documented findings and plan of care. Patient was seen and examined. Past Medical History Past Medical History: Asthma, Diabetes Mellitus, GERD/Reflux, Sleep Apnea/CPAP/BIPAP Additional Past Medical History / Comment(s): uses cpap-has obstructive sleep apnea,?diverticulitis,rash below phil breast History of Any Multi-Drug Resistant Organisms: MRSA Date of last positivie culture/infection: 2004 MDRO Source:: right arm Past Surgical History: Appendectomy, Cholecystectomy, Hysterectomy, Orthopedic Surgery Additional Past Surgical History / Comment(s): right shoulder,hemorrhoid surg.,laparoscopy x 2 Past Anesthesia/Blood Transfusion Reactions: Motion Sickness Past Psychological History: Anxiety, Depression Smoking Status: Former smoker Past Alcohol Use History: None Reported Past Drug Use History: None Reported - Past Family History Mother Family Medical History: COPD, Diabetes Mellitus Additional Family Medical History / Comment(s): obesity Father Family Medical History: Diabetes Mellitus Additional Family Medical History / Comment(s): obesity,preluekemia Medications and Allergies Home Medications Medication Instructions Recorded Confirmed Type ALPRAZolam [Xanax] 0.25 mg PO TID PRN 09/29/14 09/09/18 History Albuterol Sulfate [Ventolin HFA] 2 puff INHALATION RT-Q4H PRN 09/29/14 09/09/18 History Budesonide-Formot 160-4.5 Mcg 2 puff INHALATION RT-BID PRN 09/29/14 09/09/18 History [Symbicort 160-4.5 Mcg Inhaler] Montelukast [Singulair] 10 mg PO HS PRN 09/29/14 09/09/18 History Desvenlafaxine Succinate [Pristiq 100 mg PO HS 01/22/15 09/09/18 History ER] Dulaglutide [Trulicity] 1.5 mg SQ MO 09/01/18 09/09/18 History Esomeprazole Magnesium [NexIUM] 40 mg PO DAILY 09/01/18 09/09/18 History Lisinopril [Prinivil] 10 mg PO DAILY 09/01/18 09/09/18 History Ondansetron Odt [Zofran Odt] 4 mg PO Q8HR PRN #21 tab 09/01/18 09/09/18 Rx Cholecalciferol (Vitamin D3) 2,000 unit PO DAILY 09/09/18 09/09/18 History [Vitamin D3] Cyanocobalamin (Vitamin B-12) 5,000 mcg PO Q7D 09/09/18 09/09/18 History [Vitamin B-12] Insulin Glargine,Hum.rec.anlog 75 unit SQ DAILY 09/09/18 09/09/18 History [Basaglar Lizapen U-100] Rosuvastatin Calcium [Crestor] 20 mg PO DAILY #90 tab 09/10/18 Rx Allergies Allergy/AdvReac Type Severity Reaction Status Date / Time No Known Allergies Allergy Verified 09/09/18 15:23 Physical Exam Vitals: Vital Signs Temp Pulse Pulse Pulse Resp BP BP 09/10/18 08:00 18 09/10/18 07:05 97.9 F 82 18 108/70 09/10/18 04:00 98.4 F 78 18 09/10/18 03:29 18 09/10/18 00:00 98.3 F 83 18 09/09/18 20:57 09/09/18 20:00 18 09/09/18 18:17 97.4 F L 70 18 09/09/18 18:14 98.1 F 82 16 122/78 09/09/18 16:43 88 18 118/75 09/09/18 14:40 88 20 09/09/18 14:38 98.6 F 88 18 137/83 BP Pulse Ox 09/10/18 08:00 09/10/18 07:05 97 09/10/18 04:00 118/73 97 09/10/18 03:29 09/10/18 00:00 109/71 97 09/09/18 20:57 97 09/09/18 20:00 09/09/18 18:17 147/86 100 09/09/18 18:14 99 09/09/18 16:43 98 09/09/18 14:40 09/09/18 14:38 99 Intake and Output 09/09/18 09/10/18 09/10/18 22:59 06:59 14:59 Intake Total 240 Balance 240 Intake: Oral 240 Other: Voiding Method Toilet Toilet Toilet # Voids 1 Results 09/10/18 02:49 09/10/18 02:49 Cardiac Enzymes 09/09/18 09/09/18 09/09/18 Range/Units 15:03 15:03 21:06 AST 33 (14-36) U/L Troponin I <0.012 <0.012 (0.000-0.034) ng/mL 09/10/18 09/10/18 Range/Units 02:49 02:49 AST 23 (14-36) U/L Troponin I <0.012 (0.000-0.034) ng/mL Coagulation 09/09/18 Range/Units 15:03 PT 10.5 (9.0-12.0) sec APTT 24.4 (22.0-30.0) sec CBC 09/09/18 09/10/18 Range/Units 15:03 02:49 WBC 10.1 10.9 H (3.8-10.6) k/uL RBC 5.55 H 5.37 (3.80-5.40) m/uL Hgb 15.0 14.4 (11.4-16.0) gm/dL Hct 46.2 H 45.5 (34.0-46.0) % Plt Count 372 325 (150-450) k/uL Comprehensive Metabolic Panel 09/09/18 09/10/18 Range/Units 15:03 02:49 Sodium 140 139 (137-145) mmol/L Potassium 4.0 3.8 (3.5-5.1) mmol/L Chloride 104 105 (98-107) mmol/L Carbon Dioxide 26 23 (22-30) mmol/L BUN 12 13 (7-17) mg/dL Creatinine 0.63 0.67 (0.52-1.04) mg/dL Glucose 91 114 H (74-99) mg/dL Calcium 10.2 9.9 (8.4-10.2) mg/dL AST 33 23 (14-36) U/L ALT 42 33 (9-52) U/L Alkaline Phosphatase 88 72 (38-126) U/L Total Protein 7.6 6.6 (6.3-8.2) g/dL Albumin 4.8 4.3 (3.5-5.0) g/dL Current Medications Generic Name Dose Route Start Last Admin Trade Name Freq PRN Reason Stop Dose Admin Acetaminophen 650 mg 09/09/18 16:15 Tylenol Tab PO Q6HR PRN Mild Pain or Fever > 100.5 Alprazolam 0.25 mg 09/09/18 16:53 Xanax PO TID PRN Anxiety Aspirin 325 mg 09/10/18 09:00 Aspirin PO DAILY [facility] Budesonide/Formoterol Fumarate 2 puff 09/09/18 16:53 09/10/18 07:35 Symbicort 160-4.5 Mcg Inhaler INHALATION 2 puff RT-BID PRN Administration ASTHMA/Allergy Symptoms Cholecalciferol 2,000 unit 09/10/18 09:00 Vitamin D3 (25 Mcg = 1000 Iu) PO DAILY [facility] Cyanocobalamin 5,000 mcg 09/11/18 09:00 Vitamin B-12 PO Q7D [facility] Desvenlafaxine Succinate 100 mg 09/09/18 21:00 09/09/18 20:42 Pristiq Er PO 100 mg HS [facility] Administration Insulin Detemir 50 unit 09/10/18 09:00 Levemir SQ DAILY [facility] Lisinopril 10 mg 09/10/18 09:00 Zestril PO DAILY [facility] Montelukast Sodium 10 mg 09/09/18 16:53 Singulair PO HS PRN ALLERGY/ASTHMA SYMPTOMS Morphine Sulfate 4 mg 09/09/18 16:15 Morphine Sulfate (Inj) IV Q4HR PRN Severe Pain Naloxone HCl 0.2 mg 09/09/18 16:15 Narcan IV Q2M PRN Opioid Reversal Ondansetron HCl 4 mg 09/09/18 16:15 Zofran IVP Q8HR PRN Nausea And Vomiting Ondansetron HCl 4 mg 09/09/18 16:53 Zofran Odt PO Q8HR PRN Nausea Pantoprazole Sodium 40 mg 09/10/18 07:30 Protonix PO AC-BRKFST [facility] Intake and Output 09/09/18 09/10/18 09/10/18 22:59 06:59 14:59 Intake Total 240 Balance 240 Intake: Oral 240 Other: Voiding Method Toilet Toilet Toilet # Voids 1 09/10/18 02:49 09/10/18 02:49
[2018-09-10 11:18] LABS: Glucose,Whole Blood 92 mg/dL (75-99)
[2018-09-10 11:39] VITALS: BP 105/69; TEMP 97.8
[2018-09-10 12:05] VITALS: PULSE 88
[2018-09-10 13:04] LABS: Cholesterol 134 mg/dL (<200); HDL Cholesterol 35 mg/dL (40-60); LDL Cholesterol,Calculated 71 mg/dL (0-99); Triglycerides 142 mg/dL (<150)
--- NOTE | 2018-09-10 13:05 | P.DS ---
Providers Date of admission: 09/09/18 16:15 Attending physician: Mick Palma MD Consults: 09/09/18 16:15 Consult Physician Routine Consulting Provider: Brendan Marcus Consult Reason/Comments: Chest pain, dyspnea Do you want consulting provider notified?: Yes Primary care physician: Altagracia Craig [facility] Course: 53 years old female with past medical history of asthma, diabetes sleep apnea patient of Dr. Craig who presented with shortness of breath and chest pain to the primary care's office. Shortness of breath is at rest and is worse with exertion. According to the patient, she has been having on-and-off chest pain substernal and left chest nonradiating and associated with sweating and dizziness for the past 1 month which has worsened in the past week. Patient has echocardiogram done on September 03 that suggested moderate concentric hypertrophy with moderate mitral regurgitation. Patient was sent by the primary care to the hospital to get evaluated for the chest pain. EKG done in the ER SST-T wave changes with normal rate, QRS 88 QTC 47. Lab evaluated in the ER suggest a WBC of 10.1 hemoglobin 15 hematocrit 46.2 with a B UN 12 creatinine 0.60 cardiology consult placed patient is admitted for evaluation of chest pain. 09/10 chest pain is improved shortness of breath has resolved. Patient underwent stress test today and will follow up with Dr. sierra in 2-3 weeks for a [facility] for evaluation of valve. Crestor started 20 mg by mouth daily. Patient follows with Dr. Ibrahim on discharge. Discharge diagnoses #1 acute chest pain appears atypical #2 type 2 diabetes #3 hypertension #4 depression/anxiety #5 COPD/asthma #6 GERD #7 Mitral regurgitation [facility] in 2-3 weeks A copy of discharge to Dr. Craig Patient Condition at Discharge: Stable Plan - Discharge Summary Discharge Rx Participant: No New Discharge Prescriptions: New Rosuvastatin Calcium [Crestor] 20 mg PO DAILY #90 tab No Action Albuterol Sulfate [Ventolin HFA] 2 puff INHALATION RT-Q4H PRN PRN Reason: Shortness Of Breath Budesonide-Formot 160-4.5 Mcg [Symbicort 160-4.5 Mcg Inhaler] 2 puff INHALATION RT-BID PRN PRN Reason: ASTHMA/Allergy Symptoms Montelukast [Singulair] 10 mg PO HS PRN PRN Reason: ALLERGY/ASTHMA SYMPTOMS ALPRAZolam [Xanax] 0.25 mg PO TID PRN PRN Reason: Anxiety Desvenlafaxine Succinate [Pristiq ER] 100 mg PO HS Lisinopril [Prinivil] 10 mg PO DAILY Esomeprazole Magnesium [NexIUM] 40 mg PO DAILY Dulaglutide [Trulicity] 1.5 mg SQ MO Ondansetron Odt [Zofran Odt] 4 mg PO Q8HR PRN #21 tab PRN Reason: Nausea Cholecalciferol (Vitamin D3) [Vitamin D3] 2,000 unit PO DAILY Insulin Glargine,Hum.rec.anlog [Basaglar Kwikpen U-100] 75 unit SQ DAILY Cyanocobalamin (Vitamin B-12) [Vitamin B-12] 5,000 mcg PO Q7D Discharge Medication List ALPRAZolam [Xanax] 0.25 mg PO TID PRN 09/29/14 [History] Albuterol Sulfate [Ventolin HFA] 2 puff INHALATION RT-Q4H PRN 09/29/14 [History] Budesonide-Formot 160-4.5 Mcg [Symbicort 160-4.5 Mcg Inhaler] 2 puff INHALATION RT-BID PRN 09/29/14 [History] Montelukast [Singulair] 10 mg PO HS PRN 09/29/14 [History] Desvenlafaxine Succinate [Pristiq ER] 100 mg PO HS 01/22/15 [History] Dulaglutide [Trulicity] 1.5 mg SQ MO 09/01/18 [History] Esomeprazole Magnesium [NexIUM] 40 mg PO DAILY 09/01/18 [History] Lisinopril [Prinivil] 10 mg PO DAILY 09/01/18 [History] Ondansetron Odt [Zofran Odt] 4 mg PO Q8HR PRN #21 tab 09/01/18 [Rx] Cholecalciferol (Vitamin D3) [Vitamin D3] 2,000 unit PO DAILY 09/09/18 [History] Cyanocobalamin (Vitamin B-12) [Vitamin B-12] 5,000 mcg PO Q7D 09/09/18 [History] Insulin Glargine,Hum.rec.anlog [Basaglar Kwikpen U-100] 75 unit SQ DAILY 09/09/18 [History] Rosuvastatin Calcium [Crestor] 20 mg PO DAILY #90 tab 09/10/18 [Rx] Follow up Appointment(s)/Referral(s): Altagracia Craig MD [Primary Care Provider] - 1-2 days Zohaib Mccann MD [STAFF PHYSICIAN] - 10/06/18 10:45 am
--- NOTE | 2018-09-10 14:27 | ECHOS ---
STRESS ECHOCARDIOGRAM DATE OF SERVICE: 09/10/2018 INDICATIONS: Chest pain. MEDICATIONS: BASELINE HEART RATE: 80 BASELINE BLOOD PRESSURE: 111/74 MAXIMUM HEART RATE: 151 MAXIMUM BLOOD PRESSURE: 162/76 85% MPHR: 141 100% MPHR: 166 METS: 8.5 MAXIMUM STAGE REACHED: III TOTAL EXERCISE TIME: 7 minutes CLINICAL INFORMATION: Patient was exercised for a total period of 7 minutes. Peak heart rate of 151 was achieved. Maximum blood pressure of 162/76 mmHg was noted. Resting EKG shows normal sinus rhythm with normal DE interval and QRS duration and normal ST-T waves. No ST- segment depression suggestive of ischemia is noted. The baseline echocardiographic images reveals normal left ventricular chamber size with normal left ventricular systolic function. In the immediate postexercise periods, normal increase in the wall thickness and contractility is noted. FINAL IMPRESSION: 1. This stress echocardiographic study is negative for stress-induced ischemia. 2. Patient's exercise tolerance is average. 3. The patient did not complain of any chest pain during the test. MMODL / IJN: [id number] /
[2018-09-11] MEDS ORDERED: ASPIRIN 81 MG PO SCH (09:00)
[2018-09-11] MEDS ORDERED: CYANOCOBALAMIN 500 MCG TAB PO SCH (09:00)
== END 2018-09-10 15:00 | disposition home or self-care (01) ==
LOC: EC 14:34 → 1SOBS 16:15
PROVIDERS: ADMIT Internal Medicine; ATTEND Internal Medicine
DX: R07.89 Other chest pain (principal); J44.9 Chronic obstructive pulmonary disease, unspecified; I10 Essential (primary) hypertension; E11.9 Type 2 diabetes mellitus without complications; K21.9 Gastro-esophageal reflux disease without esophagitis; I35.0 Nonrheumatic aortic (valve) stenosis; I34.0 Nonrheumatic mitral (valve) insufficiency; R61 Generalized hyperhidrosis; R42 Dizziness and giddiness; G47.33 Obstructive sleep apnea (adult) (pediatric); Z99.89 Dependence on other enabling machines and devices; F32.9 Major depressive disorder, single episode, unspecified; F41.9 Anxiety disorder, unspecified; E66.9 Obesity, unspecified; Z68.37 Body mass index [BMI] 37.0-37.9, adult; Z79.51 Long term (current) use of inhaled steroids; Z79.4 Long term (current) use of insulin; Z79.899 Other long term (current) drug therapy; Z86.14 Personal history of Methicillin resistant Staphylococcus aureus infection; Z90.49 Acquired absence of other specified parts of digestive tract; Z90.710 Acquired absence of both cervix and uterus; Z87.891 Personal history of nicotine dependence; Z83.3 Family history of diabetes mellitus; Z82.5 Family history of asthma and other chronic lower respiratory diseases; Z80.6 Family history of leukemia; Z83.49 Family history of other endocrine, nutritional and metabolic diseases
CPT/HCPCS: 99285; 36415; 94640 ×3; 93005; 93351; 85379; 83880; 80061; 80053 ×2; 83735; 84484 ×2; 85025 ×2; 85610; 85730; 71046; G0378 ×2

== ENCOUNTER → 2018-11-04 | Day surgery (SDC) | payer BC ==
[2018-11-01 15:53] VITALS: BMI 37.7
[~2018-11-04] MED LIST: BENZOCAINE SPRAY 1 CAN MUCOUS MEM ONE; MIDAZOLAM (PF) 2 MG/2 ML VIAL IV ONE; SODIUM CHLORIDE 0.9% 1,000 ML IV SCH; SODIUM CHLORIDE 0.9% 500 ML 500 ML IV ONE; fentaNYL (PF) 50 MCG/ML 2 ML AMP IV ONE; fentaNYL (PF) 50 MCG/ML 2 ML AMP ONE
[2018-11-04 11:30] VITALS: TEMP 98.3
[2018-11-04 12:14] VITALS: RESP 14
[2018-11-04 12:56] VITALS: PULSE 68
--- NOTE | 2018-11-04 13:08 | ECHOT ---
TRANSESOPHAGEAL ECHOCARDIOGRAM This transesophageal echocardiogram was performed to assess the patient's mitral regurgitation. PROCEDURE: Patient was given intravenous sedation with Versed and fentanyl and transesophageal echocardiogram was performed without any complications. FINDINGS: Left ventricular chamber is normal in size with normal left ventricular systolic function. The mitral valve morphology is normal. There is no evidence of any mitral valve prolapse. There is minimal mitral regurgitation noted. Aortic valve is mildly sclerotic without any evidence of aortic stenosis. There is no evidence of any aortic regurgitation. Tricuspid valve morphology is normal. Left atrium is normal in size. There is no evidence of thrombus in left atrium or atrial appendage. Interatrial septum is intact. There is no evidence of any PFO. FINAL IMPRESSION: 1. Normal left ventricular chamber size with normal left ventricular systolic function. 2. Minimal thickening of the mitral leaflets noted without any evidence of mitral valve prolapse. There is minimal mitral regurgitation noted. 3. Aortic valve is sclerotic without any evidence of significant aortic stenosis. There is no evidence of any aortic regurgitation. 4. There is no evidence of thrombus in left atrial appendage. Pulmonary vein flow is normal. 5. Interatrial septum is intact. 6. There is no evidence of any patent foramen ovale. RECOMMENDATIONS: Continue medical treatment. MMODL / IJN: [id number] /
[2018-11-04 13:15] VITALS: BP 123/60
--- NOTE | 2018-11-09 12:06 | CDI ---
Outpatient Documentation Clarification Form Date: 11/09/18 CDS/Meterman Name: Leola Flanagan Phone: If any questions, call Agata Nicolas Bath Steward at [phone] Patient Name: Awilda Middleton Admit Date: 11/04/18 Discharge Date: 11/04/18 ATTENTION: The [facility] Coding Staff appreciate your assistance in clarifying documentation. Please respond to the clarification below the line at the bottom and electronically sign. The [facility] Coding staff will review the response and follow-up if needed. Please note: Queries are made part of the Legal Health Record. If you have any questions, please contact the Bath Steward. Dear Dr. Mccann, Please provide clarification as to the procedure that was performed. The operative report states that a Transesophageal Echocardiogram was performed. The hospital department charged all three parts of this exam. However, I do not see any documentation for the pulse wave w/spectral or the color flow velocity mapping. Please clarify if these parts of this test were performed. Please dictate addendum if procedure was performed. Your [facility] report is still in draft form in [facility]. So easy for you to add needed information before you sign it. See addendum prog note by Andrea MCKINNEY
--- NOTE | 2018-12-16 15:25 | P.PN ---
Progress Note - Text Progress Note Date: 12/16/18 This is an addendum to the [facility] report dictated, color flow Doppler study shows minimal mitral regurgitation. Please add this to the [facility] report. DNP note has been reviewed, I agree with a documented findings and plan of care. Patient was seen and examined.
--- NOTE | 2018-12-30 12:56 | CDI ---
Outpatient Documentation Clarification Form Date: 12/30/18 CDS/Reheater Name: Leola Flanagan Phone: If any questions, call Agata Nicolas Upsetting Machine Operator at [phone] Patient Name: Awilda Middleton Admit Date: 11/04/28 Discharge Date: 11/04/28 ATTENTION: The [facility] Coding Staff appreciate your assistance in clarifying documentation. Please respond to the clarification below the line at the bottom and electronically sign. The [facility] Coding staff will review the response and follow-up if needed. Please note: Queries are made part of the Legal Health Record. If you have any questions, please contact the Upsetting Machine Operator. Dear Dr. Mccann, Thank you for your quick response to my query regarding your [facility] documentation. I do see in the progress note that you have documented that the Color Flow Doppler Study was performed. However, I still so not see documentation for the Pulse Wave with spectral display. Please document with an addendum to your [facility] report or document on this for below the line if this part of the test was performed. Thank you for your kind consideration. MTDD
== END ==
LOC: CATHCVL 10:51
PROVIDERS: ATTEND Internal Medicine Cardiovascular Disease
DX: I08.0 Rheumatic disorders of both mitral and aortic valves (principal)
CPT/HCPCS: 93312; 93325; J3010; J2250; 93320

== ENCOUNTER 2020-06-20 18:35 | Emergency (ER) | payer BC ==
[2020-06-20] MEDS ORDERED: KETOROLAC 15 MG/ML 1 ML VIAL IM STA (19:01)
--- NOTE | 2020-06-20 19:28 | XR ---
Result: Clinical History: Pain. Comparison: None available. Technique: 3 views of the left hand. Findings: No acute fracture or dislocation is seen. The visualized osseous structures are in anatomic alignmen t. There are scattered mild degenerative changes. Ring finger ring is in place. Otherwise no definit e radiopaque foreign body seen. Impression: No acute osseous abnormality. Mild osteoarthritis.
--- NOTE | 2020-06-20 19:36 | ED ---
Extremity Problem HPI - General Chief complaint: Extremity Problem,Nontraumatic Stated complaint: Left Arm injury Time Seen by Provider: 06/20/20 18:47 Source: patient, RN notes reviewed Mode of arrival: ambulatory Limitations: no limitations - History of Present Illness Initial comments: 54-year-old white female patient presents to the emergency room with her after waking from a nap around 4:00pm today with left hand and forearm pain. Patient states she seen Dr. Lew yesterday and had a joint injection for arthritis to the base of her left thumb and went home with no complications. Pt bought a T splint and wore it today but took it off when she woke with pain. States upon awakening with pain took Tylenol and Flexeril with no relief. Started having anxiety so she took a Xanax and had bring her to ER. Patient tearful in room. MD Complaint: extremity pain, joint pain -: hour(s) (started when she woke from nap around 1600 today) Location: left - Related Data Home Medications Medication Instructions Recorded Confirmed ALPRAZolam [Xanax] 0.25 mg PO TID PRN 09/29/14 11/04/18 Albuterol Sulfate [Ventolin HFA] 2 puff INHALATION RT-Q4H PRN 09/29/14 11/01/18 Budesonide-Formot 160-4.5 Mcg 2 puff INHALATION RT-BID PRN 09/29/14 11/01/18 [Symbicort 160-4.5 Mcg Inhaler] Montelukast [Singulair] 10 mg PO HS PRN 09/29/14 11/01/18 Desvenlafaxine Succinate [Pristiq] 100 mg PO HS 01/22/15 11/04/18 Dulaglutide [Trulicity] 1.5 mg SQ MO 09/01/18 11/04/18 Esomeprazole Magnesium [NexIUM] 40 mg PO DAILY 09/01/18 11/04/18 Lisinopril [Prinivil] 10 mg PO DAILY 09/01/18 11/04/18 Cholecalciferol (Vitamin D3) 2,000 unit PO DAILY 09/09/18 11/04/18 [Vitamin D3] Cyanocobalamin (Vitamin B-12) 5,000 mcg PO Q7D 09/09/18 11/01/18 [Vitamin B-12] Insulin Glargine,Hum.rec.anlog 75 unit SQ DAILY 09/09/18 11/04/18 [Basaglar Kwikpen U-100] Rosuvastatin Calcium [Crestor] 20 mg PO HS 11/01/18 11/04/18 buPROPion XL [Wellbutrin XL] 300 mg PO DAILY 11/01/18 11/04/18 Allergies Allergy/AdvReac Type Severity Reaction Status Date / Time No Known Allergies Allergy Verified 06/20/20 18:39 Review of Systems ROS Statement: Those systems with pertinent positive or pertinent negative responses have been documented in the HPI. ROS Other: All systems not noted in ROS Statement are negative. Past Medical History Past Medical History: Asthma, Cancer, Diabetes Mellitus, GERD/Reflux, Hyperlipidemia, Hypertension, Sleep Apnea/CPAP/BIPAP Additional Past Medical History / Comment(s): uses cpap-has obstructive sleep apnea,MELENOMA -2002 History of Any Multi-Drug Resistant Organisms: MRSA Date of last positivie culture/infection: 2004 MDRO Source:: right arm Past Surgical History: Appendectomy, Cholecystectomy, Hysterectomy, Orthopedic Surgery Additional Past Surgical History / Comment(s): right shoulder,hemorrhoid surg.,laparoscopy x 2, LESION- LEFT SHOULDER REMOVED (MELENOMA) Past Anesthesia/Blood Transfusion Reactions: Motion Sickness, Postoperative Nausea & Vomiting (PONV) Past Psychological History: Anxiety, Depression Smoking Status: Former smoker Past Alcohol Use History: Rare Past Drug Use History: None Reported - Past Family History Mother Family Medical History: No Reported History Additional Family Medical History / Comment(s): obesity Father Family Medical History: No Reported History, Diabetes Mellitus Additional Family Medical History / Comment(s): obesity,preluekemia General Exam - General Exam Comments Initial Comments: no evidence of joint injection yesterday, swelling and pain to light palpation, positive radial pulse and cap refill less than 2 seconds. Patient unable to perform any range of motion due to pain. States pain shoots up her arm to mid forearm. Sensation is intact and equal compared to right hand and arm. Limitations: no limitations General appearance: alert, in no apparent distress Head exam: Present: atraumatic, normocephalic, normal inspection Eye exam: Present: normal appearance, PERRL, EOMI. Absent: scleral icterus, c onjunctival injection, periorbital swelling ENT exam: Present: normal exam, mucous membranes moist Respiratory exam: Present: normal lung sounds bilaterally. Absent: respiratory distress, wheezes, rales, rhonchi, stridor Cardiovascular Exam: Present: regular rate Left Hand Wrist exam: Present: tenderness, swelling Course Vital Signs 06/20/20 06/20/20 18:36 20:33 Temperature 98.2 F 98.4 F Pulse Rate 79 90 Respiratory 18 16 Rate Blood Pressure 153/105 146/96 O2 Sat by Pulse 100 98 Oximetry - Reevaluation(s) Reevaluation #1: 06/20/20 19:59 Patient able to move fingers of left hand slightly. states pain still 11 out of 10. With active range of motion patient screamed out in pain stating pain went up radial and ulnar sides of arm. Patient apologetic but states pain is still very severe with movement of hand or wrist. Patient speaking to Dr. Proctor on the phone who told her he just left OR and will be coming down to see patient while in the emergency room. 06/20/20 20:01 Time: 19:59 (IM toradol 15mg at 1910) Medical Decision Making - Medical Decision Making Dr. Proctor from orthopedics came to the ER to evaluate patient. States does not see anything acutely that needs to be addressed here in the emergency room and the patient can follow-up in the office in 2-3 days. He wrote a prescription for [place] and a splint and advised the patient to follow-up in the office. X- ray and labs reviewed. CRP 6.8, WBC 12.9. X-ray negative for acute process. Patient believes that the store bought splint may have been the cause possibly too tight. Starting to feel much more relief with Toradol. States will follow up as needed. - Lab Data Result diagrams: 06/20/20 19:51 Lab Results 06/20/20 06/20/20 Range/Units 19:51 19:51 WBC 12.9 H (3.8-10.6) k/uL RBC 5.38 (3.80-5.40) m/uL Hgb 14.9 (11.4-16.0) gm/dL Hct 45.4 (34.0-46.0) % MCV 84.4 (80.0-100.0) fL MCH 27.7 (25.0-35.0) pg MCHC 32.8 (31.0-37.0) g/dL RDW 12.9 (11.5-15.5) % Plt Count 307 (150-450) k/uL MPV 6.4 Neutrophils % 77 % Lymphocytes % 17 % Monocytes % 5 % Eosinophils % 1 % Basophils % 0 % Neutrophils # 9.9 H (1.3-7.7) k/uL Lymphocytes # 2.2 (1.0-4.8) k/uL Monocytes # 0.6 (0-1.0) k/uL Eosinophils # 0.1 (0-0.7) k/uL Basophils # 0.0 (0-0.2) k/uL ESR 2 (0-20) mm/hr C-Reactive Protein 6.8 (<10.0) mg/L Disposition Clinical Impression: Wrist pain, left Disposition: HOME SELF-CARE Condition: Stable Additional Instructions: Follow-up with Dr. Proctor in 2-3 days, take medication as prescribed and obtain thumb spica splint at medical supply store and wear until seen in his office. Return to the emergency room if increased pain or worsening symptoms. Is patient prescribed a controlled substance at d/c from ED?: No Referrals: Altagracia Craig MD [Primary Care Provider] - 1-2 days Time of Disposition: 20:59
[2020-06-20 19:58] LABS: Basophils % (A) 0 %; Eosinophils # (A) 0.1 k/uL (0-0.7); Eosinophils % (A) 1 %; HCT 45.4 % (34.0-46.0); HGB 14.9 gm/dL (11.4-16.0); Lymphocytes # (A) 2.2 k/uL (1.0-4.8); Lymphocytes % (A) 17 %; MCH 27.7 pg (25.0-35.0); MCHC 32.8 g/dL (31.0-37.0); MCV 84.4 fL (80.0-100.0); Mean Platelet Volume 6.4; Monocytes # (A) 0.6 k/uL (0-1.0); Monocytes % (A) 5 %; Neutrophils # (A) 9.9 k/uL (1.3-7.7); Neutrophils % (A) 77 %; Platelet Count 307 k/uL (150-450); RBC 5.38 m/uL (3.80-5.40); RDW 12.9 % (11.5-15.5); WBC 12.9 k/uL (3.8-10.6)
[2020-06-20 20:35] VITALS: BP 146/96; RESP 16; TEMP 98.4
[2020-06-20 20:40] LABS: Erythrocyte Sedimentation Rate 2 mm/hr (0-20)
[2020-06-20 20:41] VITALS: PULSE 90
== END 2020-06-20 21:09 | disposition home or self-care (01) ==
LOC: EC 18:35
DX: M25.532 Pain in left wrist (principal); J45.909 Unspecified asthma, uncomplicated; I10 Essential (primary) hypertension; K21.9 Gastro-esophageal reflux disease without esophagitis; E78.5 Hyperlipidemia, unspecified; M19.042 Primary osteoarthritis, left hand; G47.33 Obstructive sleep apnea (adult) (pediatric); F41.9 Anxiety disorder, unspecified; F32.9 Major depressive disorder, single episode, unspecified; Z79.899 Other long term (current) drug therapy; Z79.4 Long term (current) use of insulin; Z99.89 Dependence on other enabling machines and devices; Z87.891 Personal history of nicotine dependence; Z85.820 Personal history of malignant melanoma of skin
CPT/HCPCS: 36415; 85652; 85025; 86140; 73130; 99283; 96372; J1885

== ENCOUNTER → 2021-09-12 | Outpatient (CLI) | payer BC ==
--- NOTE | 2021-09-12 17:22 | CONS ---
CONSULTATION DATE OF SERVICE: 09/12/2021 This 56-year-old lady has been evaluated in Sleep Center for obstructive sleep apnea- hypopnea syndrome. HISTORY OF PRESENT ILLNESS/SLEEP-WAKE EVALUATION: This patient was seen by me in Sleep Center more than 3 years ago. About 10 years ago she was diagnosed with obstructive sleep apnea-hypopnea syndrome, and since that time she has been on treatment with CPAP. She continues to use her CPAP equipment every night for the whole night. Recently she developed more awakenings with CPAP and not as good quality sleep as before. Her sleep schedule is from 11 or 12 midnight until 7 a.m. on weekdays and until 8 or 8:30 a.m. on weekends. She does have problems sometimes with falling asleep. She reads in her bedroom. She sleeps in different positions. She wakes up from sleep 2 times with one episode of nocturia. No history of hypnagogic hallucinations, sleep paralysis or cataplexy. During the night she has episodes of palpitations, panic attacks, grinding teeth, restless legs. In the morning the patient wakes up tired, falling asleep during the day. She has episodes of irritability, depression and anxiety. [place] Sleepiness Scale is significantly increased to 15. PAST MEDICAL HISTORY: Positive for heart problems, asthma, sinus problems, cancer, melanoma in 2001, acid reflux, diabetes. PAST SURGICAL HISTORY: Bilateral shoulder repair 2010 and 2013, total hysterectomy, appendectomy, procedures for endometriosis. History of melanoma. MEDICATIONS: 1. Pristiq 100 mg once a day. 2. Nexium 40 mg once a day. 3. Basaglar 75 units once a day. 4. Trulicity . 5. Symbicort inhaler. 6. Flonase inhaler. 7. Crestor 20 mg once a day. 8. Xanax 0.5 mg as needed up to 3 times a day. FAMILY HISTORY: Hypertension, epilepsy in her brother, sleep apnea. REVIEW OF SYSTEMS: Awakenings from sleep and sometimes episodes of sleepiness while using her CPAP equipment. No fevers. No double vision. No recent chest pain. No shortness of breath. No abdominal pain. No bleeding episodes. No blood in the urine. No seizure episodes. I checked the patient's CPAP unit. Pressure is 8 cm of water. The patient is using equipment every night, 7-1/2 hours per night. The machine does not have information about apnea-hypopnea index. The machine is old. The patient is using a Plascencia FX medium-sized mask. PHYSICAL EXAMINATION: GENERAL: Pleasant lady without distress. VITAL SIGNS: BP 149/95, HR 81, RR 18, height 5 feet 4 inches, weight 216.8, temperature 97.3, oxygen saturation at room air 98%. Body mass index 37. HEENT: PERRLA, EOMI, evaluation of oropharynx showed tongue protrudes midline. Low position of soft palate; Mallampati IV. NECK: Supple, no JVD. Thyroid is not palpable. Wide neck; 17 inches in circumference. LUNGS: Clear to percussion and to auscultation. Good air exchange. No wheezing or rhonchi. HEART: S1, S2 regular. No murmurs, gallops, or rubs. ABDOMEN: Slightly obese. EXTREMITIES: No clubbing or cyanosis. SENIOR ANIMAL TRAINER: Awake, alert, and oriented X3. Cranial nerves 2 to 7 intact. There is no fasciculation or atrophy. noted. No focal deficits observed. IMPRESSION: 1. Obstructive sleep apnea-hypopnea syndrome for more than 10 years. The patient demonstrated 100% compliance with treatment. Recently developed awakenings from CPAP. Her CPAP unit is old and does not have information about apnea-hypopnea index. It does not have an option for automatic adjustments in pressure. 2. Obesity; body mass index 37. 3. Acid reflux. 4. Asthma. 5. Hyperlipidemia. 6. Anxiety. 7. Obesity. 8. Status post bilateral shoulder repair. 9. Status post total hysterectomy. 10.History of endometriosis, status post several endoscopic procedures for endometriosis. PLAN: 1. Prescription for new CPAP unit. The machine will work in automatic regimen. Range of the pressure 6 to 12. The patient should use equipment every night for the whole night. 2. Prescription for all necessary supplies, including mask, tube and filters. 3. I will see the patient for follow-up visit to evaluate her clinical response on treatment with the new CPAP unit and to check apnea-hypopnea index. 4. Losing weight. 5. No driving if feeling sleepiness. 6. Sleep hygiene with regular time in bed for at least 7-1/2 to 8 hours. Thank you very much for referring this patient for consultation. Sincerely, Patricio Pisano MD, PhD, FAASM Diplomat of [employer] Sleep Medicine Board of [employer] Wire Frame Lampshade Maker of [facility] [place] MMDENNIS / BRANDI: [id number] /
== END | disposition home or self-care (01) ==
LOC: SLEEP 14:30
PROVIDERS: ATTEND Internal Medicine
DX: G47.33 Obstructive sleep apnea (adult) (pediatric) (principal); E66.9 Obesity, unspecified; Z68.37 Body mass index [BMI] 37.0-37.9, adult; K21.9 Gastro-esophageal reflux disease without esophagitis; J45.909 Unspecified asthma, uncomplicated; E78.5 Hyperlipidemia, unspecified; F41.9 Anxiety disorder, unspecified; Z98.890 Other specified postprocedural states; Z90.79 Acquired absence of other genital organ(s)

== ENCOUNTER → 2022-01-23 | Outpatient (CLI) | payer BC ==
--- NOTE | 2022-01-23 13:47 | P.PN ---
Subjective DATE: 01/23/2022 FOLLOW UP VISIT. Patient with obstructive sleep apnea hypopnea syndrome return to sleep center for follow-up visit. Recently patient received new CPAP unit. Patient was able to use PAP equipment every night for the whole night. The patient does not have significant problems with the mask, PAP pressure and humidification. [place] sleepiness scale is 8. I checked information from PAP unit. PAP unit pressure 6-11, average 10.7 cm H2O. Usage is 97 % for more then 4 hours, average 8 hours per night. Leak is 11.8 l/m, which is in acceptable range. Apnea Hypopnea Index is 1.1., which is normal. MEDICATIONS:1. Nexium 40 mg once a day 2. Symbicort inhaler 3. Flonase 4. Crestor 20 mg once a day 5. Xanax 0.5 mg as needed up to 3 times a day 6. Pristiq 100 mg once a day 7. Basalgar During physical exam: GENERAL: A pleasant patient without any distress. VITAL SIGNS: BP 161/88, HR 91, RR 18, weight 221.0, temperature 97.2, oxygen saturation at room air 99. HEENT: PERRLA, EOMI.low position of soft palate, Mallapati 4 . NECK: Supple. No JVD. LUNGS: Clear to percussion and to auscultation. Good air exchange. No wheezing or rhonchi. HEART: S1, S2 regular. ABDOMEN: Soft and nontender. Slightly obese EXTREMITIES: No clubbing or cyanosis. JET BLADE POLISHER: Awake, alert, and oriented x3. No focal deficit. Impressions: 1. Obstructive sleep apnea-hypopnea syndrome. Patient demonstrated great compliance with treatment, benefiting from treatment. 2. Obesity. 3. Acid reflux. 4. Asthma. 5. Hyperlipidemia. 6. Anxiety. 7. Diabetes. 8. Melanoma in 2001 treated surgically. 9. Status post bilateral shoulder repair. Plan: 1. Continue using PAP equipment every night for the whole night. 2. To change air filter at least 1-2 times per month. 3. PAP unit should stay lower then position of the head. 4. Advised patient to remove all remaining water from humidifier canister daily and make it dry after each usage. Refill canister with fresh distilled water before each usage. 5. Sleep hygiene with regular time in bed for at least 8 hours. 6. Precautions related to driving. No driving if feel any sleepiness. 7. I will maintain prescription for PAP supplies including mask, tube, filters. 8. Follow up visit in 6 months or earlier if patient has any problems. 9. Watching and losing weight. Thank you very much for allowing me to participate in the management of your patient. Patricio Pisano MD, PhD, FAASM. Diplomat of [place] [employer], Sleep Medicine Board by [place] [employer] Hemming And Tacking Machine Operator of [facility] [place]
== END ==
LOC: SLEEP 13:19
PROVIDERS: ATTEND Internal Medicine
DX: G47.33 Obstructive sleep apnea (adult) (pediatric) (principal); Z99.89 Dependence on other enabling machines and devices; E66.9 Obesity, unspecified; K21.9 Gastro-esophageal reflux disease without esophagitis; J45.909 Unspecified asthma, uncomplicated; E78.5 Hyperlipidemia, unspecified; F41.9 Anxiety disorder, unspecified; E11.9 Type 2 diabetes mellitus without complications; Z85.820 Personal history of malignant melanoma of skin

== ENCOUNTER → 2022-08-06 | Outpatient (CLI) | payer BC ==
--- NOTE | 2022-08-06 14:37 | P.PN ---
Subjective DATE: 08/06/2022 FOLLOW UP VISIT. Patient with obstructive sleep apnea hypopnea syndrome return to sleep center for follow-up visit. Information from previous visit have been reviewed. Patient is using PAP equipment every night for the whole night, getting PAP supplies in time. The patient does not have significant problems with the mask, PAP unit and humidification. [place] sleepiness scale is 5, which is normal. I checked information from PAP unit. PAP unit pressure 6-11, average 10.7 cm H2O. Usage is 97% and 90 % for more then 4 hours, average 7 hours per night. Leak is 10.7 l/m, which is in acceptable range. Apnea Hypopnea Index is 2.1, which is normal. MEDICATIONS:1. Lisinopril 10 mg once a day 2. Crestor 10 mg once a day 3. Meloxicam 7.5 mg once a day 4. Nexium 40 mg once a day 5. Pristiq 100 mg once a day 6. Rubelsus 14 mg once a day During physical exam: GENERAL: A pleasant patient without any distress. VITAL SIGNS: BP 131/83, HR 79, RR 20 , weight 213.8, temperature 98.2, oxygen saturation at room air 97 % . HEENT: PERRLA, EOMI.low position of soft palate, Mallapati 4 . NECK: Supple. No JVD. LUNGS: Clear to percussion and to auscultation. Good air exchange. No wheezing or rhonchi. HEART: S1, S2 regular. ABDOMEN: Soft and nontender. EXTREMITIES: No clubbing or cyanosis. QA AUTOMATION ARCHITECT: Awake, alert, and oriented x3. No focal deficit. Impressions: 1. Obstructive sleep apnea-hypopnea syndrome. Patient demonstrated great compliance with treatment, benefiting from treatment. 2. Obesity, body mass index 36.7, patient lost 8 pounds since previous visit. 3. History of asthma. 4. Diabetes mellitus. 5. Acid reflux. 6. Hyperlipidemia. 7. Anxiety. 8. Status post surgical treatment of melanoma in 2001. 9. Status post bilateral shoulder repair. Plan: 1. Continue using PAP equipment every night for the whole night. 2. To change air filter at least 1-2 times per month. 3. PAP unit should stay lower then position of the head. 4. Advised patient to remove all remaining water from humidifier canister daily and make it dry after each usage. Refill canister with fresh distilled water before each usage. 5. Sleep hygiene with regular time in bed for at least 8 hours. 6. Precautions related to driving. No driving if feel any sleepiness. 7. I will maintain prescription for PAP supplies including mask, tube, filters. 8. Watching and continue losing weight. 9. Follow up visit in 6 months or earlier if patient has any problems. Thank you very much for allowing me to participate in the management of your patient. Patricio Pisano MD, PhD, FAASM. Diplomat of [place] [employer], Sleep Medicine Board by [place] [employer] Cutter Brake Lining of [facility] [place]
== END ==
LOC: SLEEP 14:08
PROVIDERS: ATTEND Internal Medicine
DX: G47.33 Obstructive sleep apnea (adult) (pediatric) (principal); E11.9 Type 2 diabetes mellitus without complications; E66.9 Obesity, unspecified; E78.5 Hyperlipidemia, unspecified; F41.9 Anxiety disorder, unspecified; J45.909 Unspecified asthma, uncomplicated; K21.9 Gastro-esophageal reflux disease without esophagitis; Z68.36 Body mass index [BMI] 36.0-36.9, adult; Z79.1 Long term (current) use of non-steroidal anti-inflammatories (NSAID); Z79.899 Other long term (current) drug therapy; Z85.820 Personal history of malignant melanoma of skin; Z96.611 Presence of right artificial shoulder joint; Z96.612 Presence of left artificial shoulder joint; Z98.890 Other specified postprocedural states; Z99.89 Dependence on other enabling machines and devices; Z87.891 Personal history of nicotine dependence
CPT/HCPCS: 99212

== ENCOUNTER → 2022-11-25 | Outpatient (CLI) | payer BC ==
--- NOTE | 2022-11-26 07:53 | MM ---
Reason for Exam: Screening (asymptomatic). Last mammogram was performed 4 year(s) and 8 month(s) ago. Patient History: Menarche at age 12. First Full-Term at age 22. Left ovary removed at age 31. Right ovary removed at age 31. Hysterectomy at age 31. Postmenopausal. Other cancer. Estrogen for 10 years from age 31 until age 41. Paternal grandmother had breast cancer. Risk Values: Nayely 5 year model risk: 1.2%. NCI Lifetime model risk: 6.9%. Prior Study Comparison: 12/09/2011 Bilateral Screening Mammogram, [facility]. 01/31/2015 Bilateral Screening Mammogram, [facility]. 04/14/2018 Bilateral Diagnostic Mammogram, [facility]. Tissue Density: The breast tissue is heterogeneously dense. This may lower the sensitivity of mammography. Findings: Analyzed By CAD. There is no suspicious group of microcalcifications or new suspicious mass in either breast. Overall Assessment: Negative, BI-RAD 1 Management: Screening Mammogram of both breasts in 1 year. A clinical breast exam by your physician is recommended on an annual basis and results should be correlated with mammographic findings. Note on Nayely scores and lifetime risk: 1. A Nayely score greater than 3% is considered moderate risk. If this is the case, consider specialist referral to assess eligibility for a risk reducing agent. If overall lifetime risk for the development of breast cancer is 20% or higher, the patient may qualify for future screening with alternating mammogram and breast MRI. Electronically signed and approved by: Stephon Li D.O.
== END | disposition home or self-care (01) ==
LOC: RADMAMWWP 15:47
PROVIDERS: ATTEND Family Medicine
DX: Z12.31 Encounter for screening mammogram for malignant neoplasm of breast (principal); Z78.0 Asymptomatic menopausal state; Z80.3 Family history of malignant neoplasm of breast
CPT/HCPCS: 77063; 77067

== ENCOUNTER 2023-01-29 15:45 | Emergency (ER) | payer BC ==
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
[2023-01-29 17:30] LABS: Basophils % (A) 0 %; Eosinophils % (A) 0 %; HGB 14.8 gm/dL (11.4-16.0); Lymphocytes % (A) 33 %; MCH 28.8 pg (25.0-35.0); MCHC 33.6 g/dL (31.0-37.0); MCV 85.8 fL (80.0-100.0); Monocytes # (A) 0.4 k/uL (0-1.0); Monocytes % (A) 4 %; Neutrophils # (A) 5.5 k/uL (1.3-7.7); Neutrophils % (A) 61 %; Platelet Count 285 k/uL (150-450); RBC 5.13 m/uL (3.80-5.40); RDW 13.2 % (11.5-15.5)
[2023-01-29 17:39] LABS: Appearance,Urine Clear (Clear); Bilirubin,Urine Negative (Negative); Blood,Urine Negative (Negative); Color,Urine Yellow; Glucose,Urine (UA) Negative (Negative); Ketones,Urine Negative (Negative); Leukocyte Esterase,Urine Negative (Negative); Nitrite,Urine Negative (Negative); Protein,Urine Negative (Negative); Specific Gravity,Urine 1.017 (1.001-1.035); Urobilinogen,Urine <2.0 mg/dL (<2.0)
[2023-01-29 18:48] LABS: ALT 39 U/L (4-34); AST 28 U/L (14-36); African American GFR (CKD) >90 (>60 ml/min/1.73 sqM); Albumin 4.4 g/dL (3.5-5.0); Alkaline Phosphatase 87 U/L (38-126); Anion Gap 11 mmol/L; Blood Urea Nitrogen 10 mg/dL (7-17); Calcium 9.6 mg/dL (8.4-10.2); Carbon Dioxide 28 mmol/L (22-30); Chloride 101 mmol/L (98-107); Glucose 122 mg/dL (74-99); Non-African American GFR(CKD) >90 (>60 ml/min/1.73 sqM); Sodium 140 mmol/L (137-145); Total Bilirubin 0.3 mg/dL (0.2-1.3); Total Protein 6.9 g/dL (6.3-8.2)
[2023-01-29 19:18] VITALS: RESP 18
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
[2023-01-29 21:14] VITALS: BP 148/92; PULSE 88; TEMP 98.6
== END 2023-01-29 21:10 | disposition home or self-care (01) ==
LOC: EC 15:45
DX: S30.1XXA Contusion of abdominal wall, initial encounter (principal); E11.9 Type 2 diabetes mellitus without complications; F32.A Depression, unspecified; F41.9 Anxiety disorder, unspecified; G47.33 Obstructive sleep apnea (adult) (pediatric); I10 Essential (primary) hypertension; J45.909 Unspecified asthma, uncomplicated; Z79.4 Long term (current) use of insulin; Z79.51 Long term (current) use of inhaled steroids; Z79.899 Other long term (current) drug therapy; Z87.891 Personal history of nicotine dependence; Z90.49 Acquired absence of other specified parts of digestive tract; V18.0XXA Pedal cycle driver injured in noncollision transport accident in nontraffic accident, initial encounter; Y93.55 Activity, bike riding
CPT/HCPCS: 99284 ×2; 36415; 80053; 85025; 81003; 74177; Q9967

== ENCOUNTER → 2023-03-04 | Outpatient (CLI) | payer BC ==
--- NOTE | 2023-03-04 11:16 | P.PN ---
Subjective DATE: 03/04/2023 FOLLOW UP VISIT. Patient with obstructive sleep apnea hypopnea syndrome return to sleep center for follow-up visit. Information from previous visit have been reviewed. Patient is using PAP equipment every night for the whole night, getting PAP supplies in time. The patient does not have significant problems with the mask, PAP unit and humidification. [place] sleepiness scale is 11, which is slightly increased. Patient lost her in September 2022 and still has difficulties related to sleep secondary to grief and anxiety.. I checked information from PAP unit. PAP unit pressure 6-11 cm H2O. Usage is 93 % for more then 4 hours, average 8.3 hours per night. Leak is 2.7 l/m, which is in acceptable range. Apnea Hypopnea Index is 1.2, which is normal. MEDICATIONS:1. Xanax 0.5 mg up to 3 times a day as needed 2. Crestor 20 mg once a day 3. Nexium 40 mg once a day 4. Lisinopril 10 mg once a day 5. Symbicort 6. Pro Air 7. Flexeril 10 mg once a day 8. Pristiq 150 mg once a day During physical exam: GENERAL: A pleasant patient without any distress. VITAL SIGNS: BP 142/33, HR 103, RR 16, weight 212.4, temperature 98.2, oxygen saturation at room air 94 % . HEENT: PERRLA, EOMI.low position of soft palate, Mallapati 4. NECK: Supple. No JVD. LUNGS: Clear to percussion and to auscultation. Good air exchange. No wheezing or rhonchi. HEART: S1, S2 regular. ABDOMEN: Soft and nontender. Obese EXTREMITIES: No clubbing or cyanosis. CURRICULUM FACILITATOR: Awake, alert, and oriented x3. No focal deficit. Impressions: 1. Obstructive sleep apnea-hypopnea syndrome. Patient demonstrated great compliance with treatment, benefiting from treatment. 2. Obesity, patient lost 1 pound since previous visit. 3. Diabetes mellitus. 4. History of asthma. 5. Acid reflux. 6. Hyperlipidemia. 7. History of anxiety. 8. Status post surgical treatment of melanoma in 2001 . 9. status post bilateral is shoulder repair . Plan: 1. Continue using PAP equipment every night for the whole night. 2. To change air filter at least 1-2 times per month. 3. PAP unit should stay lower then position of the head. 4. Advised patient to remove all remaining water from humidifier canister daily and make it dry after each usage. Refill canister with fresh distilled water before each usage. 5. Sleep hygiene with regular time in bed for at least 8 hours. 6. Precautions related to driving. No driving if feel any sleepiness. 7. I will maintain prescription for PAP supplies including mask, tube, filters. 8. Follow up visit in 6 months or earlier if patient has any problems. 9. Watching and losing weight. Thank you very much for allowing me to participate in the management of your patient. Patricio Pisano MD, PhD, FAASM. Diplomat of [place] [employer], Sleep Medicine Board by [place] [employer] Stranding Supervisor of [facility] [place]
== END ==
LOC: 3 N SLEEP 10:33
PROVIDERS: ATTEND Internal Medicine
DX: G47.33 Obstructive sleep apnea (adult) (pediatric) (principal); E66.9 Obesity, unspecified; E11.9 Type 2 diabetes mellitus without complications; J45.909 Unspecified asthma, uncomplicated; K21.9 Gastro-esophageal reflux disease without esophagitis; E78.5 Hyperlipidemia, unspecified; F41.9 Anxiety disorder, unspecified; Z79.51 Long term (current) use of inhaled steroids; Z79.899 Other long term (current) drug therapy; Z85.820 Personal history of malignant melanoma of skin; Z99.89 Dependence on other enabling machines and devices; Z79.4 Long term (current) use of insulin; Z79.85 Long-term (current) use of injectable non-insulin antidiabetic drugs; Z87.891 Personal history of nicotine dependence
CPT/HCPCS: 99212

== ENCOUNTER → 2023-09-09 | Outpatient (CLI) | payer BC ==
[2023-09-09 10:54] VITALS: BP 151/92; PULSE 82; RESP 16; TEMP 98.7
--- NOTE | 2023-09-09 11:14 | P.PN ---
Subjective DATE: 09/09/2023 FOLLOW UP VISIT. Patient with obstructive sleep apnea hypopnea syndrome return to sleep center for follow-up visit. Information from previous visit have been reviewed. Patient is using PAP equipment every night for the whole night, getting PAP supplies in time. The patient does not have significant problems with the mask, PAP unit and humidification. [place] sleepiness scale is 8, which is normal. I checked information from PAP unit. PAP unit pressure 6-11, average 10.8 cm H2O. Usage is 100% for more then 4 hours, average 8.2 hours per night. Leak is 2.9 l/m, which is perfect. Apnea Hypopnea Index is 2.1, which is normal. MEDICATIONS:1. Pristiq 150 mg once a day 2. Crestor 10 mg once a day 3. Flexeril 10 mg once a day 4. Xanax 5. Rybelsus 14 mg once a day 6. Wellbutrin 150 mg once a day 7. Symbicort 8. Lisinopril 10 mg once a day During physical exam: GENERAL: A pleasant patient without any distress. VITAL SIGNS: Please see below, weight 216.8 pounds. HEENT: PERRLA, EOMI.low position of soft palate, Mallapati 4 . NECK: Supple. No JVD. LUNGS: Clear to percussion and to auscultation. Good air exchange. No wheezing or rhonchi. HEART: S1, S2 regular. ABDOMEN: Soft and nontender.[] EXTREMITIES: No clubbing or cyanosis. CALENDER WIND UP TENDER: Awake, alert, and oriented x3. No focal deficit. Impressions: 1. Obstructive sleep apnea-hypopnea syndrome. Patient demonstrated great compliance with treatment, benefiting from treatment. 2. Obesity, patient increased weight on 4 pounds comparing with the previous visit. 3. Diabetes. 4. Asthma. 5. Acid reflux. 6. Hyperlipidemia. 7. History of anxiety. 8. Status post bilateral shoulder repair. 9. Status post surgical treatment for melanoma in 2001. Plan: 1. Continue using PAP equipment every night for the whole night. 2. To change air filter at least 1-2 times per month. 3. PAP unit should stay lower then position of the head. 4. Advised patient to remove all remaining water from humidifier canister daily and make it dry after each usage. Refill canister with fresh distilled water before each usage. 5. Sleep hygiene with regular time in bed for at least 8 hours. 6. Precautions related to driving. No driving if feel any sleepiness. 7. I will maintain prescription for PAP supplies including mask, tube, filters. 8. Watching and losing weight. 9. Follow up visit in 6 months or earlier if patient has any problems. Thank you very much for allowing me to participate in the management of your patient. Patricio Pisano MD, PhD, FAASM. Diplomat of [place] [employer], Sleep Medicine Board by [place] [employer] Border Inspector of [facility] [place] Objective - Vital Signs Vital signs: Vital Signs Temp 98.7 F 09/09/23 10:47 Pulse 82 09/09/23 10:47 Resp 16 09/09/23 10:47 BP 151/92 09/09/23 10:47 Pulse Ox 95 09/09/23 10:47 FiO2 Intake & Output 09/08/23 09/09/23 09/09/23 18:59 06:59 18:59 Weight 98.203 kg
== END ==
LOC: 3 N SLEEP 10:23
PROVIDERS: ATTEND Internal Medicine
DX: G47.33 Obstructive sleep apnea (adult) (pediatric) (principal); E66.9 Obesity, unspecified; J45.909 Unspecified asthma, uncomplicated; K21.9 Gastro-esophageal reflux disease without esophagitis; E78.5 Hyperlipidemia, unspecified; F41.9 Anxiety disorder, unspecified; E11.9 Type 2 diabetes mellitus without complications; Z85.820 Personal history of malignant melanoma of skin; Z98.890 Other specified postprocedural states; Z79.51 Long term (current) use of inhaled steroids; Z79.899 Other long term (current) drug therapy; Z99.89 Dependence on other enabling machines and devices; Z79.4 Long term (current) use of insulin; Z87.891 Personal history of nicotine dependence
CPT/HCPCS: 99212

== ENCOUNTER → 2024-04-06 | Outpatient (CLI) | payer BC ==
[2024-04-06 16:41] VITALS: BP 135/89; PULSE 88; RESP 16; TEMP 97.9
--- NOTE | 2024-04-06 17:44 | P.PROGSL ---
Subjective DATE: 04/06/2024 FOLLOW UP VISIT. Patient with obstructive sleep apnea hypopnea syndrome return to sleep center for follow-up visit. Information from previous visit have been reviewed. Patient is using PAP equipment every night for the whole night, getting PAP supplies in time. The patient does not have significant problems with the mask, PAP unit and humidification. [place] sleepiness scale is 8, which is in normal range. I checked information from PAP unit. PAP unit pressure 6-11, average 10.8 cm H2O. Usage is 95% for more then 4 hours, average 6.2 hours per night. Leak is 4l/m, which is in acceptable range. Apnea Hypopnea Index is 1.4, which is normal. MEDICATIONS have been reviewed, please see below. During physical exam: GENERAL: A pleasant patient without any distress. VITAL SIGNS: Please see below, weight is 214 lbs. HEENT: PERRLA, EOMI.low position of soft palate, Mallapati 4 . NECK: Supple. No JVD. LUNGS: Clear to percussion and to auscultation. Good air exchange. No wheezing or rhonchi. HEART: S1, S2 regular. ABDOMEN: Soft and nontender.[] EXTREMITIES: No clubbing or cyanosis. ENGAGEMENT ENGINEER: Awake, alert, and oriented x3. No focal deficit. Impressions: 1. Obstructive sleep apnea-hypopnea syndrome. Patient demonstrated great compliance with treatment, benefiting from treatment. 2. Obesity, patient lost 2.8 pounds comparing with previous visit, BMI 37.3. 3. Diabetes mellitus, recent hemoglobin A1c 7.2 according to patient. 4. Asthma. 5. Acid reflux. 6. Hyperlipidemia. 7. History of anxiety. 8. Status post surgical treatment for melanoma in 2001. 9. Status post bilateral shoulder repair. Plan: 1. Continue using PAP equipment every night for the whole night. 2. Sleep hygiene with regular time in bed for at least 7.5-8 hours 3. PAP unit should stay lower then position of the head. 4. Advised patient to remove all remaining water from humidifier canister daily and make it dry after each usage. Refill canister with fresh distilled water before each usage. 5. Watching weight. 6. Precautions related to driving. No driving if feel any sleepiness. 7. I will maintain prescription for PAP supplies including mask, tube, filters. 8. Follow up visit in 8 months or earlier if patient has any problems. Thank you very much for allowing me to participate in the management of your patient. Patricio Pisano MD, PhD, FAASM. Diplomat of [place] [employer], Sleep Medicine Board by [employer] Pipe Layer [facility] [place] Objective - Vital Signs Vital Signs: Vital Signs Temp 97.9 F 04/06/24 16:39 Pulse 88 04/06/24 16:39 Resp 16 04/06/24 16:39 BP 135/89 04/06/24 16:39 Pulse Ox 97 04/06/24 16:39 FiO2 Intake & Output 04/05/24 04/06/24 04/06/24 18:59 06:59 18:59 Weight 97.069 kg Home Medications: Home Medications Medication Instructions Recorded Confirmed Type ALPRAZolam [Xanax] 0.25 mg PO TID PRN 09/29/14 04/06/24 History Albuterol Sulfate [Ventolin HFA] 2 puff INHALATION RT-Q4H PRN 09/29/14 04/06/24 History Budesonide-Formot 160-4.5 Mcg 2 puff INHALATION RT-BID PRN 09/29/14 04/06/24 History [Symbicort 160-4.5 Mcg Inhaler] Montelukast [Singulair] 10 mg PO HS PRN 09/29/14 04/06/24 History Desvenlafaxine Succinate [Pristiq] 100 mg PO HS 01/22/15 04/06/24 History Dulaglutide [Trulicity] 1.5 mg SQ MO 09/01/18 04/06/24 History Esomeprazole Magnesium [NexIUM] 40 mg PO DAILY 09/01/18 04/06/24 History lisinopriL [Prinivil] 10 mg PO DAILY 09/01/18 04/06/24 History Cholecalciferol (Vitamin D3) 2,000 unit PO DAILY 09/09/18 04/06/24 History [Vitamin D3] Cyanocobalamin (Vitamin B-12) 5,000 mcg PO Q7D 09/09/18 04/06/24 History [Vitamin B-12] Insulin Glargine,Hum.rec.anlog 75 unit SQ DAILY 09/09/18 04/06/24 History [Basaglar Kwikpen U-100] Rosuvastatin Calcium [Crestor] 20 mg PO HS 11/01/18 04/06/24 History buPROPion XL [Wellbutrin XL] 300 mg PO DAILY 11/01/18 04/06/24 History
== END ==
LOC: 3 N SLEEP 15:59
PROVIDERS: ATTEND Internal Medicine
DX: G47.33 Obstructive sleep apnea (adult) (pediatric) (principal); E66.9 Obesity, unspecified; Z68.37 Body mass index [BMI] 37.0-37.9, adult; E11.9 Type 2 diabetes mellitus without complications; J45.909 Unspecified asthma, uncomplicated; K21.9 Gastro-esophageal reflux disease without esophagitis; E78.5 Hyperlipidemia, unspecified; Z86.59 Personal history of other mental and behavioral disorders; Z98.890 Other specified postprocedural states; Z99.89 Dependence on other enabling machines and devices; Z87.891 Personal history of nicotine dependence
CPT/HCPCS: 99212